=== PATIENT | male | born 1930 | race Caucasian/White ===

== ENCOUNTER 2017-11-11 07:57 | Emergency (ER) | payer MEDICARE ==
[~2017-11-11] VITALS: Ht 188 cm; Wt 122.5 kg
[~2017-11-11 07:57] MED LIST: ALPR0.2565 PO; ASPI-482 PO; BETA1TAB10 PO; CYAN500T17 PO; FELO5TAB PO; GLIP5TAB10; IOHE350I IV; NIAC500T82; OMEG1CAP6 PO; OMEP20CA9 PO; ONDA4TAB12 PO; SIMV80TA7 PO
[2017-11-11 08:38] LABS: BASO # 0.1 x10^3/uL (0.0-0.2); BASO % 1 % (0-3); EOS # 0.2 x10^3/uL (0.0-0.7); EOS % 2 % (0-3); HEMATOCRIT 45.4 % (39.0-53.0); HEMOGLOBIN 15.2 g/dL (13.0-17.5); LYMPH # 2.5 x10^3/uL (1.0-4.8); LYMPH % 31 % (24-48); MEAN CORPUSCULAR HEMOGLOBIN 30 pg (25-35); MEAN CORPUSCULAR HGB CONC 33 g/dL (31-37); MEAN CORPUSCULAR VOLUME 90 fL (79-100); MONO % 12 % (0-9); NEUT # 4.6 x10^3uL (1.8-7.7); NEUT % 55 % (31-73); PLATELET COUNT 231 x10^3/uL (140-400); RED BLOOD COUNT 5.06 x10^6/uL (4.30-5.70); WHITE BLOOD COUNT 8.3 x10^3/uL (4.0-11.0)
[2017-11-11 09:01] LABS: ALBUMIN 3.3 g/dL (3.4-5.0); ALBUMIN/GLOBULIN RATIO 0.9 (1.0-1.7); CALCIUM 8.9 mg/dL (8.5-10.1); CREATININE 2.6 mg/dL (0.7-1.3); GFR 23.6; MAGNESIUM 1.8 mg/dL (1.8-2.4); POTASSIUM 4.5 mmol/L (3.5-5.1); TOTAL BILIRUBIN 0.7 mg/dL (0.2-1.0); TOTAL PROTEIN 6.9 g/dL (6.4-8.2)
--- NOTE | 2017-11-11 09:01 | RAD ---
Portable chest, 11/11/2017: HISTORY: Shortness of breath Comparison is made to a study from 12/10/2011. The heart size and pulmonary vascularity are normal. No pulmonary infiltrate is seen. There is no evidence of pleural fluid. IMPRESSION: No acute cardiopulmonary abnormality is detected. Electronically signed by: Matty Gilliam MD (11/11/2017 8:58 AM) [facility]
[2017-11-11 09:31] LABS: BILIRUBIN,URINE NEG (NEG); CLARITY,URINE CLEAR; COLOR,URINE YELLOW; GLUCOSE,URINE NEG (NEG)
[2017-11-11 09:32] LABS: BACTERIA,URINE 0 /HPF (0-FEW); NITRITE,URINE NEG (NEG); RBC,URINE 0 /HPF (0-2); UROBILINOGEN,URINE 0.2 mg/dL (0.2 mg/dL); WBC,URINE 0 /HPF (0-4)
[2017-11-11] MEDS ORDERED: LORazepam 2 MG/ML VIAL IV ONE (09:45)
--- NOTE | 2017-11-11 10:13 | RAD ---
CT of the head without contrast, 11/11/2017: HISTORY: Weakness There is mild cerebral atrophy. There are mild patchy lucencies in the deep white matter bilaterally suggesting chronic ischemic change. There is no shift of the midline structures. There is no evidence of acute intracranial hemorrhage or mass effect. IMPRESSION: 1. Mild bilateral deep white matter lucencies compatible with chronic ischemic change. 2. No acute intracranial abnormality is detected. RS Compliance Statement: One or more of the following individualized dose reduction techniques were utilized for this examination: 1. Automated exposure control 2. Adjustment of the mA and/or kV according to patient size 3. Use of iterative reconstruction technique Electronically signed by: Matty Gilliam MD (11/11/2017 10:10 AM) [facility]
[2017-11-11 10:40] VITALS: BP 166/69
--- NOTE | 2017-11-11 10:44 | PHYS DOC ---
Past History Past Medical History: Anxiety, Diabetes, GERD Additional Past Medical Histor: elevated harmony Past Surgical History: Cholecystectomy Smoking: Non-smoker Alcohol Use: None Drug Use: None Adult General Chief Complaint Chief Complaint: FATIGUE HPI HPI 87-year-old male patient with multiple medical problem and anxiety complaining of not feeling good for a while that getting worse since 4 AM today. Patient states he cannot explain why he feels that he is not doing right. Patient patient denies chest pain, shortness of breath, focal neuro deficit, fever and chills, cough and congestion, diarrhea and constipation, urinary nausea and vomiting, urinary symptom. Review of Systems Review of Systems Constitutional: Denies fever or chills, reports generalized weakness [] Eyes: Denies change in visual acuity, redness, or eye pain [] HENT: Denies nasal congestion or sore throat [] Respiratory: Denies cough or shortness of breath [] Cardiovascular: No additional information not addressed in HPI [] GI: Denies abdominal pain, nausea, vomiting, bloody stools or diarrhea [] : Denies dysuria or hematuria [] Musculoskeletal: Denies back pain or joint pain [] Integument: Denies rash or skin lesions [] Neurologic: Denies headache, focal weakness or sensory changes [] Endocrine: Denies polyuria or polydipsia [] All other systems were reviewed and found to be within normal limits, except as documented in this note. Current Medications Current Medications Current Medications Medications (Trade) Dose Ordered Sig/Arthur Start Time Stop Time Status Last Admin Dose Admin Lorazepam (Ativan) 0.5 mg 1X ONCE 11/11/17 09:45 11/11/17 09:46 DC Allergies Allergies Allergies Coded Allergies Type Severity Reaction Last Updated Verified morphine Allergy Anxiety 08/04/13 Yes hydromorphone HCl Adverse Reaction Severe severe anxiety 08/04/13 Yes Physical Exam Physical Exam Constitutional: Well developed, well nourished, mild distress, non-toxic appearance. [] HENT: Normocephalic, atraumatic, bilateral external ears normal, oropharynx moist, no oral exudates, nose normal. [] Eyes: PERRLA, EOMI, conjunctiva normal, no discharge. [] Neck: Normal range of motion, no tenderness, supple, no stridor. [] Cardiovascular:Heart rate regular rhythm, no murmur [] Lungs & Thorax: Bilateral breath sounds clear to auscultation [] Abdomen: Bowel sounds normal, soft, no tenderness, no masses, no pulsatile masses. [] Skin: Warm, dry, no erythema, no rash. [] Back: No tenderness, no CVA tenderness. [] Extremities: No tenderness, no cyanosis, no clubbing, ROM intact, no edema. [] Neurologic: Alert and oriented X 3, normal motor function, normal sensory function, no focal deficits noted. [] Psychologic: Affect anxious, judgement normal, mood normal. [] Current Patient Data Lab Results Laboratory Tests Test 11/11/17 08:22 11/11/17 08:27 11/11/17 09:10 11/11/17 09:38 White Blood Count 8.3 x10^3/uL (4.0-11.0) Red Blood Count 5.06 x10^6/uL (4.30-5.70) Hemoglobin 15.2 g/dL (13.0-17.5) Hematocrit 45.4 % (39.0-53.0) Mean Corpuscular Volume 90 fL (79-100) Mean Corpuscular Hemoglobin 30 pg (25-35) Mean Corpuscular Hemoglobin Concent 33 g/dL (31-37) Red Cell Distribution Width 14.0 % (11.5-14.5) Platelet Count 231 x10^3/uL (140-400) Neutrophils (%) (Auto) 55 % (31-73) Lymphocytes (%) (Auto) 31 % (24-48) Monocytes (%) (Auto) 12 % (0-9) H Eosinophils (%) (Auto) 2 % (0-3) Basophils (%) (Auto) 1 % (0-3) Neutrophils # (Auto) 4.6 x10^3uL (1.8-7.7) Lymphocytes # (Auto) 2.5 x10^3/uL (1.0-4.8) Monocytes # (Auto) 1.0 x10^3/uL (0.0-1.1) Eosinophils # (Auto) 0.2 x10^3/uL (0.0-0.7) Basophils # (Auto) 0.1 x10^3/uL (0.0-0.2) Prothrombin Time 12.1 SEC (9.4-11.4) H Prothrombin Time INR 1.2 (0.9-1.1) H Sodium Level 136 mmol/L (136-145) Potassium Level 4.5 mmol/L (3.5-5.1) Chloride Level 104 mmol/L (98-107) Carbon Dioxide Level 29 mmol/L (21-32) Anion Gap 3 (6-14) L Blood Urea Nitrogen 31 mg/dL (8-26) H Creatinine 2.6 mg/dL (0.7-1.3) H Estimated GFR (Cockcroft-Gault) 23.6 BUN/Creatinine Ratio 12 (6-20) Glucose Level 167 mg/dL (70-99) H Lactic Acid Level 1.3 mmol/L (0.4-2.0) Calcium Level 8.9 mg/dL (8.5-10.1) Magnesium Level 1.8 mg/dL (1.8-2.4) Total Bilirubin 0.7 mg/dL (0.2-1.0) Aspartate Amino Transferase (AST) 23 U/L (15-37) Alanine Aminotransferase (ALT) 29 U/L (16-63) Alkaline Phosphatase 138 U/L (46-116) H Creatine Kinase 119 U/L (39-308) Creatine Kinase MB (Mass) 2.7 ng/mL (0.0-3.6) Creatine Kinase MB Relative Index 2.3 % (0-4) Troponin I Quantitative < 0.017 ng/mL (0-0.055) PI-Kxh-W-Type Natriuretic Peptide 245 pg/mL (0-449) Total Protein 6.9 g/dL (6.4-8.2) Albumin 3.3 g/dL (3.4-5.0) L Albumin/Globulin Ratio 0.9 (1.0-1.7) L Glucose (Fingerstick) 168 mg/dL (70-99) H 143 mg/dL (70-99) H Urine Collection Type Unknown Urine Color Yellow Urine Clarity Clear Urine pH 5.5 Urine Specific [place] 1.010 Urine Protein Trace (NEG-TRACE) Urine Glucose (UA) Neg mg/dL (NEG) Urine Ketones (Stick) Neg mg/dL (NEG) Urine Blood Neg (NEG) Urine Nitrite Neg (NEG) Urine Bilirubin Neg (NEG) Urine Urobilinogen Dipstick 0.2 mg/dL (0.2 mg/dL) Urine Leukocyte Esterase Neg (NEG) Urine RBC 0 /HPF (0-2) Urine WBC 0 /HPF (0-4) Urine Squamous Epithelial Cells None /LPF Urine Bacteria 0 /HPF (0-FEW) EKG EKG EKG interpreted by me. EKG at 0 816 showed normal sinus rhythm at rate of 68, leftward axis, no acute ST and T-wave abnormalities Radiology/Procedures Radiology/Procedures [][address] [address] IMAGING REPORT Signed PATIENT: SANGEETHA RODRÍGUEZ ACCOUNT: [id number] : 1930 LOCATION: ER AGE: 87 SEX: M EXAM STATUS: REG ER ORD. PHYSICIAN: BUCK ZAVALETA MD REASON: weakness PROCEDURE: CT HEAD WO CONTRAST CT of the head without contrast, 11/11/2017: HISTORY: Weakness There is mild cerebral atrophy. There are mild patchy lucencies in the deep white matter bilaterally suggesting chronic ischemic change. There is no shift of the midline structures. There is no evidence of acute intracranial hemorrhage or mass effect. IMPRESSION: 1. Mild bilateral deep white matter lucencies compatible with chronic ischemic change. 2. No acute intracranial abnormality is detected. PQRS Compliance Statement: One or more of the following individualized dose reduction techniques were utilized for this examination: 1. Automated exposure control 2. Adjustment of the mA and/or kV according to patient size 3. Use of iterative reconstruction technique Electronically signed by: Matty Gilliam MD (11/11/2017 10:10 AM) [facility] DICTATED AND SIGNED BY: MATTY GILLIAM [address] [address] IMAGING REPORT Signed PATIENT: SANGEETHA RODRÍGUEZ ACCOUNT: [id number] : 1930 LOCATION: ER AGE: 87 SEX: M EXAM STATUS: REG ER ORD. PHYSICIAN: BUCK ZAVALETA MD REASON: weakness PROCEDURE: PORTABLE CHEST 1V Portable chest, 11/11/2017: HISTORY: Shortness of breath Comparison is made to a study from 12/10/2011. The heart size and pulmonary vascularity are normal. No pulmonary infiltrate is seen. There is no evidence of pleural fluid. IMPRESSION: No acute cardiopulmonary abnormality is detected. Electronically signed by: Matty Gilliam MD (11/11/2017 8:58 AM) [facility] DICTATED AND SIGNED BY: MATTY GILLIAM MD DATE: 11/11/17 0857 CC: BUCK ZAVALETA MD; ALAN ARTEAGA MD ~ Course & Med Decision Making Course & Med Decision Making Pertinent Labs and Imaging studies reviewed. (See chart for details) Evaluation of patient in ER showed 87-year-old male patient with complaining of not feeling good since this morning patient had unremarkable physical exam and neuro exam. EKG and labs was unremarkable except for chronic renal insufficiency. Patient had blood sugar of 160s patient had episodes of anxiety and treated with Ativan and felt better. Patient currently taking Xanax. Patient ambulated without problem and feels comfortable to go home. Patient's affect is follow up with his primary care physician as needed. [] Dragon Disclaimer Dragon Disclaimer This electronic medical record was generated, in whole or in part, using a voice recognition dictation system. Departure Departure: Impression: Primary Impression: Anxiety Additional Impressions: Generalized weakness Chronic renal insufficiency Uncontrolled diabetes mellitus Disposition: 01 HOME, SELF-CARE (At 1044) Condition: IMPROVED Referrals: ALAN ARTEAGA MD (PCP) Patient Instructions: Anxiety and Panic Attacks Additional Instructions: Drink plenty of liquids Follow-up with your primary care physician in 3-5 days Return to ER if not getting better Problem Qualifiers BUCK ZAVALETA MD Nov 11, 2017 10:44
--- NOTE | 2017-11-11 11:48 | EKG ---
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
[2017-11-12] MEDS ORDERED: ESCITALOPRAM OXA5 MG PO (05:23)
[2017-11-12] MEDS ORDERED: [UNRECOGNIZED DRUG - OTHER] PO (05:23)
[2017-11-12] MEDS ORDERED: GLUCOS PO (05:23)
[2017-11-12] MEDS ORDERED: AMLO5TAB2 PO (05:23)
[2017-11-12] MEDS ORDERED: CETI10TA16 PO (05:23)
[2017-11-12] MEDS ORDERED: LISI10TA2 PO (05:27)
[2017-11-12] MEDS ORDERED: MULT1TAB52 PO (05:27)
[2017-11-12] MEDS ORDERED: METF500T5 PO (05:28)
[2017-11-12] MEDS ORDERED: POLY17PO5 PO (05:28)
[2017-11-12] MEDS ORDERED: losartin (05:28)
== END 2017-11-11 11:15 | disposition home or self-care (01) ==
LOC: ER 07:57
DX: F41.9 Anxiety disorder, unspecified (principal); R53.1 Weakness; E11.22 Type 2 diabetes mellitus with diabetic chronic kidney disease; N18.9 Chronic kidney disease, unspecified; K21.9 Gastro-esophageal reflux disease without esophagitis; Z88.5 Allergy status to narcotic agent
CPT/HCPCS: 36415; 70450; 71045; 80053; 81001; 82553; 82947; 83605; 83735; 83880; 84484; 85025; 85610; 93005; 99285-25

== ENCOUNTER 2017-11-12 04:45 | Emergency (ER) | payer MEDICARE ==
[~2017-11-12] VITALS: Ht 188 cm; Wt 122.5 kg
[2017-11-12 05:20] VITALS: BP 177/61
[2017-11-12] MEDS ORDERED: AMLO5TAB2 PO (05:23)
[2017-11-12] MEDS ORDERED: GLUCOS PO (05:23)
[2017-11-12] MEDS ORDERED: ESCITALOPRAM OXA5 MG PO (05:23)
[2017-11-12] MEDS ORDERED: [UNRECOGNIZED DRUG - OTHER] PO (05:23)
[2017-11-12] MEDS ORDERED: CETI10TA16 PO (05:23)
--- NOTE | 2017-11-12 05:24 | PHYS DOC ---
Past History Past Medical History: Anxiety, Constipation, Diabetes, GERD, Hypertension Additional Past Medical Histor: elevated harmony Past Surgical History: Cholecystectomy Smoking: Non-smoker Alcohol Use: None Drug Use: None Adult General Chief Complaint Chief Complaint: ANXIETY/PANIC ATTACK HPI HPI 87-year-old male presents via EMS with panic attack. He has a history of anxiety and used to take ask citalopram 5 mg daily. The medication was labeled for mood and the patient understands and lives taking it so he stopped taking it about a week ago. He was seen in this ED yesterday for similar complaint. He was treated and went home. Around midnight tonight, the patient woke up with the restroom and just felt overlying anxiety. He couldn't sit down or lay down or stop pacing around the house. He tried to take a half of a Xanax but this did not help. Since he could not get settled, he called EMS. At this time, he has no complaints. Review of Systems Review of Systems Constitutional: Denies fever or chills [] Eyes: Denies change in visual acuity, redness, or eye pain [] HENT: Denies nasal congestion or sore throat [] Respiratory: Denies cough or shortness of breath [] Cardiovascular: No additional information not addressed in HPI [] GI: Denies abdominal pain, nausea, vomiting, bloody stools or diarrhea [] : Denies dysuria or hematuria [] Musculoskeletal: Denies back pain or joint pain [] Integument: Denies rash or skin lesions [] Neurologic: Denies headache, focal weakness or sensory changes [] Endocrine: Denies polyuria or polydipsia [] All other systems were reviewed and found to be within normal limits, except as documented in this note. Allergies Allergies Allergies Coded Allergies Type Severity Reaction Last Updated Verified morphine Allergy Unknown Anxiety 11/12/17 Yes hydromorphone HCl Adverse Reaction Severe severe anxiety 11/12/17 Yes Physical Exam Physical Exam Constitutional: Well developed, well nourished, no acute distress, non-toxic appearance. [] HENT: Normocephalic, atraumatic, bilateral external ears normal, oropharynx moist, no oral exudates, nose normal. [] Eyes: PERRLA, EOMI, conjunctiva normal, no discharge. [] Neck: Normal range of motion, no tenderness, supple, no stridor. [] Cardiovascular:Heart rate regular rhythm, no murmur [] Lungs & Thorax: Bilateral breath sounds clear to auscultation [] Abdomen: Bowel sounds normal, soft, no tenderness, no masses, no pulsatile masses. [] Skin: Warm, dry, no erythema, no rash. [] Back: No tenderness, no CVA tenderness. [] Extremities: No tenderness, no cyanosis, no clubbing, ROM intact, no edema. [] Neurologic: Alert and oriented X 3, normal motor function, normal sensory function, no focal deficits noted. [] Psychologic: Affect normal, judgement normal, mood normal. Anxiety appears to be controlled.[] Current Patient Data Vital Signs Vital Signs Date Time Temp Pulse Resp B/P (MAP) Pulse Ox O2 Delivery O2 Flow Rate FiO2 11/12/17 04:55 98.4 65 20 95 Room Air EKG EKG [] Radiology/Procedures Radiology/Procedures [] Course & Med Decision Making Course & Med Decision Making Pertinent Labs and Imaging studies reviewed. (See chart for details) The time the patient got emergency room, his panic attack hasn't subsided. During my interview, he stated that he feels normal at this time. His also states that he is back to himself. The patient quit taking the medication because he did not understand what was for. I had a long discussion with him about the purpose of his preventative anxiety medication is citalopram as well as the use of Xanax for acute attacks. Now that he understands better, he states that he will resume taking his escitalopram. Given that the patient had an extensive workup by my colleague yesterday, I did not feel that a repeat evaluation as necessary. I gave the patient the option of repeating a workup and he would prefer not to as well. Since he is feeling back to baseline, he would like to go home. He is stable for discharge at this time. [] Dragon Disclaimer Dragon Disclaimer This electronic medical record was generated, in whole or in part, using a voice recognition dictation system. Departure Departure: Referrals: ALAN ARTEAGA MD (PCP) TAWNYA PEDROZA DO Nov 12, 2017 05:24
[2017-11-12] MEDS ORDERED: LISI10TA2 PO (05:27)
[2017-11-12] MEDS ORDERED: MULT1TAB52 PO (05:27)
[2017-11-12] MEDS ORDERED: POLY17PO5 PO (05:28)
[2017-11-12] MEDS ORDERED: losartin (05:28)
[2017-11-12] MEDS ORDERED: METF500T5 PO (05:28)
== END 2017-11-12 05:32 | disposition home or self-care (01) ==
LOC: ER 04:45
DX: F41.0 Panic disorder [episodic paroxysmal anxiety] (principal); E11.9 Type 2 diabetes mellitus without complications; K21.9 Gastro-esophageal reflux disease without esophagitis; I10 Essential (primary) hypertension; Z88.5 Allergy status to narcotic agent
CPT/HCPCS: 99284

== ENCOUNTER 2018-02-13 17:38 | Emergency (ER) | payer MEDICARE ==
[~2018-02-13] VITALS: Ht 188 cm; Wt 134.7 kg
[~2018-02-13 17:38] MED LIST changes: +ACET325T9 PO; +AMLO5TAB7 PO; +CETI10TA16 PO; +CITA10TA4 PO; +DIVA125C2 PO; +ESCITALOPRAM OXA5 MG PO; +FLUV50TA2 PO; -GLIP5TAB10; +GLIP5TAB10 PO; +GLUC1CAP18 PO; +GLUCOS PO; +LISI10TA2 PO; +METF500T16 PO; +MULT1TAB52 PO; +POLY17PO5 PO; +TRAZ-86 PO; +[UNRECOGNIZED DRUG - OTHER] PO; +losartin
[2018-02-13 17:49] VITALS: BP 176/71
--- NOTE | 2018-02-13 17:52 | ED.ADGEN ---
Past History Past Medical History: Anxiety, Constipation, Diabetes, GERD, Hypertension, Renal Disease, Other Additional Past Medical Histor: elevated harmony Past Surgical History: Cholecystectomy Smoking: Non-smoker Alcohol Use: None Drug Use: None Adult General Chief Complaint Chief Complaint ".. I ve been having increase insomnia... and anxiety... it has been mainly in the afternoon... when I start getting anxious.. and the sleeping problems has been constant the last couple weeks.. I was admitted here once.... for anxiety.. I usually go to [facility] sometimes... " HPI HPI Patient is a 88 year old male who presents with above hx and complaints of insomnia and anxiety. Pt has medical hx of anxiety, insomnia, DM, GERD, HTN, CHf , and Renal Insuf. Pt. patient normally follows at [facility]. I'll follow up with primary care. Patient has been taking majority his psych meds as directed. However it has not taken his trazodone 100 mg at night for sleep. Patient has not been taking his Alprazolam for anxiety because it makes him sedate during the day. Patient has follow-up with psychiatrist on the , Review of Systems Review of Systems Only complaints or anxiety and insomnia currently Constitutional: Denies fever or chills [] Eyes: Denies change in visual acuity, redness, or eye pain [] HENT: Denies nasal congestion or sore throat [] Respiratory: Denies cough or shortness of breath [] Cardiovascular: No additional information not addressed in HPI [] GI: Denies abdominal pain, nausea, vomiting, bloody stools or diarrhea [] : Denies dysuria or hematuria [] Musculoskeletal: Denies back pain or joint pain [] Integument: Denies rash or skin lesions [] Neurologic: Denies headache, focal weakness or sensory changes [] Endocrine: Denies polyuria or polydipsia [] All other systems were reviewed and found to be within normal limits, except as documented in this note. Family History Family History Noncontributory Current Medications Current Medications See nursing notes for home meds Allergies Allergies Allergies Coded Allergies Type Severity Reaction Last Updated Verified morphine Allergy Intermediate Anxiety 01/17/18 Yes hydromorphone HCl Adverse Reaction Severe severe anxiety 11/12/17 Yes Physical Exam Physical Exam Constitutional: , no acute distress, non-toxic appearance. [] HENT: Normocephalic, atraumatic, bilateral external ears normal, oropharynx moist, no oral exudates, nose normal. [] Eyes: PERRLA, EOMI, conjunctiva normal, no discharge. [] Neck: Normal range of motion, no tenderness, supple, no stridor. [] Cardiovascular:Heart rate regular rhythm, no murmur []PMI to the left. Lungs & Thorax: Bilateral breath sounds clear to auscultation [] Abdomen: Bowel sounds normal, soft, no tenderness, no masses, no pulsatile masses. [] Skin: Warm, dry, no erythema, no rash. [] Back: No tenderness, no CVA tenderness. [] Extremities: No tenderness, no cyanosis, no clubbing, ROM intact, no edema. [] Neurologic: Alert and oriented X 3, normal motor function, normal sensory function, no focal deficits noted. [] Psychologic: Affect anxious, judgement appears to have good insight currently, mood depressed Current Patient Data Vital Signs Vital Signs Date Time Temp Pulse Resp B/P (MAP) Pulse Ox O2 Delivery O2 Flow Rate FiO2 02/13/18 17:49 97.7 74 16 95 Room Air Lab Results Laboratory Tests Test 02/13/18 18:12 02/13/18 18:18 Urine Collection Type Unknown Urine Color Straw Urine Clarity Clear Urine pH 5.0 Urine Specific [place] <=1.005 Urine Protein Neg (NEG-TRACE) Urine Glucose (UA) Neg mg/dL (NEG) Urine Ketones (Stick) Neg mg/dL (NEG) Urine Blood Neg (NEG) Urine Nitrite Neg (NEG) Urine Bilirubin Neg (NEG) Urine Urobilinogen Dipstick 0.2 mg/dL (0.2 mg/dL) Urine Leukocyte Esterase Neg (NEG) Urine RBC 0 /HPF (0-2) Urine WBC 0 /HPF (0-4) Urine Squamous Epithelial Cells None /LPF Urine Bacteria 0 /HPF (0-FEW) Urine Opiates Screen Neg (NEG) Urine Methadone Screen Neg (NEG) Urine Barbiturates Neg (NEG) Urine Phencyclidine Screen Neg (NEG) Urine Amphetamine/Methamphetamine Neg (NEG) Urine Benzodiazepines Screen Neg (NEG) Urine Cocaine Screen Neg (NEG) Urine Cannabinoids Screen Neg (NEG) Urine Ethyl Alcohol Neg (NEG) White Blood Count 7.5 x10^3/uL (4.0-11.0) Red Blood Count 4.63 x10^6/uL (4.30-5.70) Hemoglobin 14.1 g/dL (13.0-17.5) Hematocrit 42.1 % (39.0-53.0) Mean Corpuscular Volume 91 fL (79-100) Mean Corpuscular Hemoglobin 30 pg (25-35) Mean Corpuscular Hemoglobin Concent 33 g/dL (31-37) Red Cell Distribution Width 14.0 % (11.5-14.5) Platelet Count 259 x10^3/uL (140-400) Neutrophils (%) (Auto) 67 % (31-73) Lymphocytes (%) (Auto) 21 % (24-48) L Monocytes (%) (Auto) 10 % (0-9) H Eosinophils (%) (Auto) 2 % (0-3) Basophils (%) (Auto) 1 % (0-3) Neutrophils # (Auto) 5.0 x10^3uL (1.8-7.7) Lymphocytes # (Auto) 1.6 x10^3/uL (1.0-4.8) Monocytes # (Auto) 0.7 x10^3/uL (0.0-1.1) Eosinophils # (Auto) 0.1 x10^3/uL (0.0-0.7) Basophils # (Auto) 0.0 x10^3/uL (0.0-0.2) Erythrocyte Sedimentation Rate 14 (0-15) Prothrombin Time 11.9 SEC (9.4-11.4) H Prothrombin Time INR 1.2 (0.9-1.1) H PTT 24 SEC (23-33) Sodium Level 138 mmol/L (136-145) Potassium Level 4.5 mmol/L (3.5-5.1) Chloride Level 104 mmol/L (98-107) Carbon Dioxide Level 28 mmol/L (21-32) Anion Gap 6 (6-14) Blood Urea Nitrogen 33 mg/dL (8-26) H Creatinine 2.3 mg/dL (0.7-1.3) H Estimated GFR (Cockcroft-Gault) 27.1 Glucose Level 212 mg/dL (70-99) H Calcium Level 8.9 mg/dL (8.5-10.1) Magnesium Level 1.8 mg/dL (1.8-2.4) Total Bilirubin 0.5 mg/dL (0.2-1.0) Direct Bilirubin 0.1 mg/dL (0.0-0.2) Aspartate Amino Transferase (AST) 22 U/L (15-37) Alanine Aminotransferase (ALT) 30 U/L (16-63) Alkaline Phosphatase 132 U/L (46-116) H Creatine Kinase 135 U/L (39-308) Troponin I Quantitative < 0.017 ng/mL (0-0.055) OD-Ngl-K-Type Natriuretic Peptide 529 pg/mL (0-449) H Total Protein 6.4 g/dL (6.4-8.2) Albumin 3.3 g/dL (3.4-5.0) L Lipase 133 U/L (73-393) EKG EKG My interpretation of EKG shows a sinus rhythm at 70 bpm. Does have some left axis deviation. A fascicular block. No obvious acute STEMI findings with contralateral changes.[] Radiology/Procedures Radiology/Procedures My interpretation of chest x-ray shows cardiomegaly. No acute interval changes. Degenerative joint changes.[] Course & Med Decision Making Course & Med Decision Making Pertinent Labs and Imaging studies reviewed. (See chart for details) Discussed plan for patient will take trazodone 100 mg one hour before bedtime. If needed and increase dose by 50 mg. Since anxiety occurs in the afternoon take the above Aprazolam 0.25 in the afternoon. He is to keep follow-up with primary and psychology. Return if any concerns. [] Final Impression Final Impression 1. Anxiety disorder 2. Insomnia onset and early awakening 3. Hypertension history 4. Renal insufficiency- BUN 33 creatinine 2.3 5. Diabetes [] Dragon Disclaimer Dragon Disclaimer This electronic medical record was generated, in whole or in part, using a voice recognition dictation system. KEYA REILLY MD Feb 13, 2018 17:52
--- NOTE | 2018-02-13 18:08 | EKG ---
[address] [address] Test Date: 2018-02-13 Test Time: 18:00:37 Pat Name: SANGEETHA RODRÍGUEZ Department: Room: Gender: M Clinical Radiologist: : 1930 Requested By: KEYA REILLY Order Number: [id number] Reading MD: Jacky Conteh MD Measurements Intervals [place] Rate: 70 P: -2 MS: 188 QRS: -32 QRSD: 106 T: 7 QT: 400 QTc: 435 Interpretive Statements SINUS RHYTHM ABNORMAL LEFT AXIS DEVIATION LEFT ANTERIOR FASCICULAR BLOCK LEFT VENTRICULAR HYPERTROPHY ABNORMAL ECG Electronically Signed On 02-14-2018 10:09:20 CDT by Jacky Conteh MD
[2018-02-13 18:35] LABS: BASO % 1 % (0-3); EOS # 0.1 x10^3/uL (0.0-0.7); EOS % 2 % (0-3); HEMATOCRIT 42.1 % (39.0-53.0); HEMOGLOBIN 14.1 g/dL (13.0-17.5); LYMPH # 1.6 x10^3/uL (1.0-4.8); LYMPH % 21 % (24-48); MEAN CORPUSCULAR HEMOGLOBIN 30 pg (25-35); MEAN CORPUSCULAR HGB CONC 33 g/dL (31-37); MEAN CORPUSCULAR VOLUME 91 fL (79-100); MONO # 0.7 x10^3/uL (0.0-1.1); MONO % 10 % (0-9); NEUT % 67 % (31-73); PLATELET COUNT 259 x10^3/uL (140-400); RED BLOOD COUNT 4.63 x10^6/uL (4.30-5.70); WHITE BLOOD COUNT 7.5 x10^3/uL (4.0-11.0)
[2018-02-13 18:42] LABS: BARBITURATES NEG (NEG); COCAINE NEG (NEG); METHADONE NEG (NEG); OPIATES NEG (NEG)
[2018-02-13 18:45] LABS: BACTERIA,URINE 0 /HPF (0-FEW); BILIRUBIN,URINE NEG (NEG); CLARITY,URINE CLEAR; COLOR,URINE STRAW; GLUCOSE,URINE NEG (NEG); NITRITE,URINE NEG (NEG); RBC,URINE 0 /HPF (0-2); UROBILINOGEN,URINE 0.2 mg/dL (0.2 mg/dL); WBC,URINE 0 /HPF (0-4)
[2018-02-13 19:00] LABS: ALBUMIN 3.3 g/dL (3.4-5.0); CALCIUM 8.9 mg/dL (8.5-10.1); CREATININE 2.3 mg/dL (0.7-1.3); DIRECT BILIRUBIN 0.1 mg/dL (0.0-0.2); GFR 27.1; MAGNESIUM 1.8 mg/dL (1.8-2.4); POTASSIUM 4.5 mmol/L (3.5-5.1); TOTAL BILIRUBIN 0.5 mg/dL (0.2-1.0); TOTAL PROTEIN 6.4 g/dL (6.4-8.2)
[2018-02-13 19:11] LABS: AMPHETAMINE/METHAMPHETAMINE NEG (NEG); BENZODIAZEPINES NEG (NEG); CANNABINOIDS NEG (NEG); PHENCYCLIDINE NEG (NEG)
[2018-02-13 19:58] LABS: SEDIMENTATION RATE 14 (0-15)
--- NOTE | 2018-02-13 20:42 | RAD ---
AP portable chest radiograph 02/13/2018 Clinical History: Chest pain. An AP erect portable digital radiograph of the chest was obtained. Comparison study is dated 11/11/2017. The cardiac silhouette is mildly enlarged. The thoracic aorta is mildly tortuous. No acute pulmonary infiltrate is seen. No pleural effusion or pneumothorax is noted. The osseous structures are unchanged. Impression: No acute abnormality is seen. Electronically signed by: Graham Anaya MD (02/13/2018 8:38 PM) [facility]
== END 2018-02-13 20:51 | disposition home or self-care (01) ==
LOC: ER 17:38
DX: F41.9 Anxiety disorder, unspecified (principal); G47.00 Insomnia, unspecified; K21.9 Gastro-esophageal reflux disease without esophagitis; E11.9 Type 2 diabetes mellitus without complications; I11.0 Hypertensive heart disease with heart failure; I50.9 Heart failure, unspecified; N28.9 Disorder of kidney and ureter, unspecified; Z88.5 Allergy status to narcotic agent
CPT/HCPCS: 36415; 71045; 80048; 80076; 80307; 81001; 82550; 83690; 83735; 83880; 84443; 84484; 85025; 85610; 85651; 85730; 93005; 99285-25; G0479

== ENCOUNTER 2018-02-21 14:08 | Emergency (ER) | payer MEDICARE ==
[~2018-02-21] VITALS: Ht 188 cm; Wt 121.6 kg
--- NOTE | 2018-02-21 14:49 | EKG ---
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
[2018-02-21 15:00] VITALS: BP 177/66
[2018-02-21 15:33] LABS: HEMOGLOBIN 13.9 g/dL (13.0-17.5); RED BLOOD COUNT 4.55 x10^6/uL (4.30-5.70); RED CELL DISTRIBUTION WIDTH 13.9 % (11.5-14.5); WHITE BLOOD COUNT 7.1 x10^3/uL (4.0-11.0)
[2018-02-21 15:47] LABS: ALBUMIN 3.1 g/dL (3.4-5.0); CALCIUM 8.5 mg/dL (8.5-10.1); CREATININE 2.2 mg/dL (0.7-1.3); GFR 28.5; POTASSIUM 4.1 mmol/L (3.5-5.1); TOTAL BILIRUBIN 0.5 mg/dL (0.2-1.0); TOTAL PROTEIN 6.3 g/dL (6.4-8.2)
[2018-02-21 15:58] LABS: BILIRUBIN,URINE NEG (NEG); CLARITY,URINE CLEAR; COLOR,URINE YELLOW; GLUCOSE,URINE NEG (NEG)
[2018-02-21 15:59] LABS: BACTERIA,URINE 0 /HPF (0-FEW); HYALINE CASTS, URINE OCC /HPF; NITRITE,URINE NEG (NEG); RBC,URINE RARE /HPF (0-2); SQUAMOUS EPITHELIAL CELL,UR OCC /LPF; UROBILINOGEN,URINE 0.2 mg/dL (0.2 mg/dL); WBC,URINE RARE /HPF (0-4)
--- NOTE | 2018-02-21 16:07 | PHYS DOC ---
Past History Past Medical History: Anxiety, Constipation, Diabetes, GERD, Hypertension, Renal Disease, Other Additional Past Medical Histor: elevated harmony Past Surgical History: Cholecystectomy Smoking: Non-smoker Alcohol Use: None Drug Use: None Adult General Chief Complaint Chief Complaint: nausea and unable to sleep [facility] HPI Patient is a 88 year old male who presents with complaining of chronic nausea that getting worse for several months without having vomiting or abdominal pain. Patient also complaining of insomnia for a long time. Patient states he cannot have a good sleep and usually waking up with nightmares. Patient had multiple emergency room visits and hospitalization in [facility] recently. Patient has appointment with a new primary care physician in 2 days and doesn't want to go to the [facility] as his usual care provider. Patient denies suicidal and homicidal ideation and hallucination, pain, focal neuro deficit, chest pain, shortness of breath. Review of Systems Review of Systems Constitutional: Denies fever or chills [] Eyes: Denies change in visual acuity, redness, or eye pain [] HENT: Denies nasal congestion or sore throat [] Respiratory: Denies cough or shortness of breath [] Cardiovascular: No additional information not addressed in HPI [] GI: Denies abdominal pain, vomiting, bloody stools or diarrhea , reports nausea[ ] : Denies dysuria or hematuria [] Musculoskeletal: Denies back pain or joint pain [] Integument: Denies rash or skin lesions [] Neurologic: Denies headache, focal weakness or sensory changes [] Endocrine: Denies polyuria or polydipsia [] All other systems were reviewed and found to be within normal limits, except as documented in this note. Allergies Allergies Allergies Coded Allergies Type Severity Reaction Last Updated Verified morphine Allergy Intermediate Anxiety 01/17/18 Yes hydromorphone HCl Adverse Reaction Severe severe anxiety 11/12/17 Yes Physical Exam Physical Exam Constitutional: Well developed, well nourished, no acute distress, non-toxic appearance. [] HENT: Normocephalic, atraumatic, bilateral external ears normal, oropharynx moist, no oral exudates, nose normal. [] Eyes: PERRLA, EOMI, conjunctiva normal, no discharge. [] Neck: Normal range of motion, no tenderness, supple, no stridor. [] Cardiovascular:Heart rate regular rhythm, no murmur [] Lungs & Thorax: Bilateral breath sounds clear to auscultation [] Abdomen: Bowel sounds normal, soft, no tenderness, no masses, no pulsatile masses. [] Skin: Warm, dry, no erythema, no rash. [] Back: No tenderness, no CVA tenderness. [] Extremities: No tenderness, no cyanosis, no clubbing, ROM intact, no edema. [] Neurologic: Alert and oriented X 3, normal motor function, normal sensory function, no focal deficits noted. [] Psychologic: Affect anxious, judgement normal, mood normal. [] Current Patient Data Vital Signs Vital Signs Date Time Temp Pulse Resp B/P (MAP) Pulse Ox O2 Delivery O2 Flow Rate FiO2 02/21/18 14:08 98.4 71 18 95 Room Air Lab Results Laboratory Tests Test 02/21/18 15:14 02/21/18 15:30 White Blood Count 7.1 x10^3/uL (4.0-11.0) Red Blood Count 4.55 x10^6/uL (4.30-5.70) Hemoglobin 13.9 g/dL (13.0-17.5) Hematocrit 41.0 % (39.0-53.0) Mean Corpuscular Volume 90 fL (79-100) Mean Corpuscular Hemoglobin 31 pg (25-35) Mean Corpuscular Hemoglobin Concent 34 g/dL (31-37) Red Cell Distribution Width 13.9 % (11.5-14.5) Platelet Count 231 x10^3/uL (140-400) Sodium Level 139 mmol/L (136-145) Potassium Level 4.1 mmol/L (3.5-5.1) Chloride Level 104 mmol/L (98-107) Carbon Dioxide Level 28 mmol/L (21-32) Anion Gap 7 (6-14) Blood Urea Nitrogen 30 mg/dL (8-26) H Creatinine 2.2 mg/dL (0.7-1.3) H Estimated GFR (Cockcroft-Gault) 28.5 BUN/Creatinine Ratio 14 (6-20) Glucose Level 200 mg/dL (70-99) H Calcium Level 8.5 mg/dL (8.5-10.1) Total Bilirubin 0.5 mg/dL (0.2-1.0) Aspartate Amino Transferase (AST) 26 U/L (15-37) Alanine Aminotransferase (ALT) 36 U/L (16-63) Alkaline Phosphatase 120 U/L (46-116) H Troponin I Quantitative < 0.017 ng/mL (0-0.055) Total Protein 6.3 g/dL (6.4-8.2) L Albumin 3.1 g/dL (3.4-5.0) L Albumin/Globulin Ratio 1.0 (1.0-1.7) Lipase 120 U/L (73-393) Urine Collection Type Unknown Urine Color Yellow Urine Clarity Clear Urine pH 5.5 Urine Specific [place] 1.015 Urine Protein 100 mg/dl (NEG-TRACE) Urine Glucose (UA) Neg mg/dL (NEG) Urine Ketones (Stick) Neg mg/dL (NEG) Urine Blood Neg (NEG) Urine Nitrite Neg (NEG) Urine Bilirubin Neg (NEG) Urine Urobilinogen Dipstick 0.2 mg/dL (0.2 mg/dL) Urine Leukocyte Esterase Neg (NEG) Urine RBC Rare /HPF (0-2) Urine WBC Rare /HPF (0-4) Urine Squamous Epithelial Cells Occ /LPF Urine Bacteria 0 /HPF (0-FEW) Urine Hyaline Casts Occ /HPF EKG EKG EKG interpreted by me. EKG at 1447 showed normal sinus rhythm at 67, abnormal left axis deviation, left anterior fascicular block, left ventricular hypertrophy, poor R-wave progress in anteroseptal leads, no acute ST and T wave abnormality Radiology/Procedures Radiology/Procedures [] Course & Med Decision Making Course & Med Decision Making Pertinent Labs reviewed. (See chart for details) Evaluation of patient in ER showed 88-year-old male patient with complaining of chronic nausea and insomnia. Patient had unremarkable physical exam and EKG and labs except for chronic renal insufficiency and uncontrolled diabetes mellitus. Patient felt better with nausea without taking any medication in ER. Patient had an appointment with a new primary care physician and wants to follow with his physician. Dragon Disclaimer Dragon Disclaimer This electronic medical record was generated, in whole or in part, using a voice recognition dictation system. Departure Departure: Impression: Primary Impression: Chronic nausea Additional Impressions: Insomnia Chronic renal insufficiency Uncontrolled diabetes mellitus Disposition: HOME, SELF-CARE (1606) Condition: STABLE Referrals: ALAN ARTEAGA MD (PCP) Patient Instructions: Insomnia, Nausea, Adult Additional Instructions: Follow-up with your primary care physician in 2 days as a scheduled Return to ER if not getting better Problem Qualifiers BUCK ZAVALETA MD Feb 21, 2018 16:07
== END 2018-02-21 16:10 | disposition home or self-care (01) ==
LOC: ER 14:08
DX: R11.0 Nausea (principal); G47.00 Insomnia, unspecified; F41.9 Anxiety disorder, unspecified; E11.65 Type 2 diabetes mellitus with hyperglycemia; K21.9 Gastro-esophageal reflux disease without esophagitis; E11.22 Type 2 diabetes mellitus with diabetic chronic kidney disease; I12.9 Hypertensive chronic kidney disease with stage 1 through stage 4 chronic kidney disease, or unspecified chronic kidney disease; N18.9 Chronic kidney disease, unspecified; Z88.5 Allergy status to narcotic agent
CPT/HCPCS: 36415; 80053; 81001; 83690; 84484; 85027; 93005; 99285-25

== ENCOUNTER 2018-03-15 08:12 | Emergency (ER) | payer MEDICARE ==
[2018-03-15 09:16] LABS: BASO % 1 % (0-3); EOS # 0.1 x10^3/uL (0.0-0.7); EOS % 1 % (0-3); HEMATOCRIT 42.7 % (39.0-53.0); HEMOGLOBIN 14.5 g/dL (13.0-17.5); LYMPH # 1.6 x10^3/uL (1.0-4.8); LYMPH % 25 % (24-48); MEAN CORPUSCULAR HEMOGLOBIN 31 pg (25-35); MEAN CORPUSCULAR HGB CONC 34 g/dL (31-37); MEAN CORPUSCULAR VOLUME 90 fL (79-100); MONO # 0.8 x10^3/uL (0.0-1.1); MONO % 12 % (0-9); NEUT # 3.8 x10^3uL (1.8-7.7); NEUT % 61 % (31-73); PLATELET COUNT 228 x10^3/uL (140-400); RED BLOOD COUNT 4.76 x10^6/uL (4.30-5.70); RED CELL DISTRIBUTION WIDTH 13.8 % (11.5-14.5); WHITE BLOOD COUNT 6.2 x10^3/uL (4.0-11.0)
[2018-03-15 09:30] LABS: ALBUMIN 3.5 g/dL (3.4-5.0); CALCIUM 8.6 mg/dL (8.5-10.1); CREATININE 2.1 mg/dL (0.7-1.3); GFR 30.1; POTASSIUM 3.7 mmol/L (3.5-5.1); TOTAL BILIRUBIN 1.1 mg/dL (0.2-1.0); TOTAL PROTEIN 6.9 g/dL (6.4-8.2)
--- NOTE | 2018-03-15 10:07 | RAD ---
CT ABDOMEN PELVIS WO CONTRAST Indication: ABDOMINAL AND EPIGASTRIC PAIN. NAUSEA. GB REMOVED Exposure: One or more of the following individualized dose reduction techniques were utilized for this examination: 1. Automated exposure control 2. Adjustment of the mA and/or kV according to patient size 3. Use of iterative reconstruction technique. Comparison: None are available. Contrast: No intravenous contrast given. No oral contrast per request. Evaluation of solid viscera, bowel and vasculature is compromised by the noncontrast technique. Lower thorax: Mildly increased interstitial markings of both lung bases. No consolidating infiltrate. Findings probably due to chronic fibrosis. Coronary artery calcification. Liver: Unremarkable Spleen: Unremarkable. Multiple small accessory splenule's. Pancreas: Unremarkable Adrenals: No evidence of mass. Kidneys: Hypodense lesion upper pole right kidney measures 4.6 cm and fluid density, most compatible with a cyst. Tiny hypodense lesion lower pole left kidney too small to characterize but would also commonly represent a cyst. Mild stranding in the perinephric fat. Urinary tracts: No urolithiasis or hydronephrosis. Gallbladder: No calcified stone Aorta: Atheromatous calcifications, no evidence of aneurysm. Lymph nodes: No significant enlargement GI tract: Colonic diverticulosis. No evidence of acute colitis. No evidence of bowel obstruction. Appendix is normal. Reproductive organs: Prostate gland mildly enlarged, 5.7 cm. Urinary bladder: Mild wall thickening. The inferior urinary bladder wall is slightly more thickened and is difficult to distinguish from the prostate gland. Peritoneum: No evidence of pneumoperitoneum. No free fluid. Abdominal wall: Unremarkable Spine: Degenerative spondylosis. 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 IMPRESSION: 1. Colonic diverticulosis without evidence of acute diverticulitis. 2. Prostatomegaly urinary bladder wall thickening could be due to chronic outlet obstruction, correlate for cystitis. Note that the prostate is difficult to distinguish from the inferior urinary bladder wall thickening and mass is not excludable. 3. Renal lesions, most likely cysts. Electronically signed by: Hugo Marie MD (03/15/2018 10:04 AM) [facility]
[2018-03-15 10:09] LABS: BILIRUBIN,URINE NEG (NEG); CLARITY,URINE CLEAR; COLOR,URINE YELLOW; GLUCOSE,URINE NEG (NEG)
[2018-03-15 10:10] LABS: BACTERIA,URINE 0 /HPF (0-FEW); NITRITE,URINE NEG (NEG); RBC,URINE 0 /HPF (0-2); SQUAMOUS EPITHELIAL CELL,UR OCC /LPF; UROBILINOGEN,URINE 0.2 mg/dL (0.2 mg/dL); WBC,URINE 0 /HPF (0-4)
--- NOTE | 2018-03-15 10:25 | EKG ---
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
[2018-03-15 10:32] VITALS: BP 197/88
--- NOTE | 2018-03-15 10:53 | PHYS DOC ---
Past History Past Medical History: Anxiety, Diabetes, GERD, High Cholesterol, Hypertension Additional Past Medical Histor: elevated harmony Past Surgical History: Cholecystectomy Smoking: Non-smoker Alcohol Use: None Drug Use: None Adult General Chief Complaint Chief Complaint: ABDOMINAL PAIN HPI HPI Patient is a 88 year old male with history of anxiety and frequent emergency room visits and chronic nausea for 4 years who presents with complaining of nausea for the last 2 days. Patient states he was not able to eat or drink anything because of nausea and tightness in epigastric area after eating food. Patient denies chest pain, shortness of breath, palpitation, diarrhea and constipation, urinary symptom. She states he took his home medication for nausea and didn't feel better. Review of Systems Review of Systems Constitutional: Denies fever or chills [] Eyes: Denies change in visual acuity, redness, or eye pain [] HENT: Denies nasal congestion or sore throat [] Respiratory: Denies cough or shortness of breath [] Cardiovascular: No additional information not addressed in HPI [] GI: Reports abdominal pain, nausea, denies vomiting, bloody stools or diarrhea [ ] : Denies dysuria or hematuria [] Musculoskeletal: Denies back pain or joint pain [] Integument: Denies rash or skin lesions [] Neurologic: Denies headache, focal weakness or sensory changes [] Endocrine: Denies polyuria or polydipsia [] All other systems were reviewed and found to be within normal limits, except as documented in this note. Current Medications Current Medications Current Medications Medications (Trade) Dose Ordered Sig/Arthur Start Time Stop Time Status Last Admin Dose Admin Famotidine (Pepcid Vial) 20 mg 1X ONCE 03/15/18 11:00 03/15/18 11:01 03/15/18 10:38 20 MG Ondansetron HCl (Zofran) 4 mg 1X ONCE 03/15/18 11:00 03/15/18 11:01 03/15/18 10:37 4 MG Allergies Allergies Allergies Coded Allergies Type Severity Reaction Last Updated Verified morphine Allergy Intermediate Anxiety 01/17/18 Yes hydromorphone HCl Adverse Reaction Severe severe anxiety 11/12/17 Yes Physical Exam Physical Exam Constitutional: Well nourished, mild distress, non-toxic appearance, anxious. [] HENT: Normocephalic, atraumatic, oropharynx moist, no oral exudates, nose normal. [] Eyes: PERRLA, EOMI, conjunctiva normal, no discharge. [] Neck: Normal range of motion, no tenderness, supple, no stridor. [] Cardiovascular:Heart rate regular rhythm, no murmur [] Lungs & Thorax: Bilateral breath sounds clear to auscultation [] Abdomen: Bowel sounds normal, soft, no tenderness, no masses, no pulsatile masses. [] Skin: Warm, dry, no erythema, no rash. [] Back: No tenderness, no CVA tenderness. [] Extremities: No tenderness, no cyanosis, no clubbing, ROM intact, no edema. [] Neurologic: Alert and oriented X 3, normal motor function, normal sensory function, no focal deficits noted. [] Psychologic: Affect anxious, judgement normal, mood normal. [] Current Patient Data Vital Signs Vital Signs Date Time Temp Pulse Resp B/P (MAP) Pulse Ox O2 Delivery O2 Flow Rate FiO2 03/15/18 10:32 77 18 94 Room Air Lab Results Laboratory Tests Test 03/15/18 08:54 03/15/18 09:28 White Blood Count 6.2 x10^3/uL (4.0-11.0) Red Blood Count 4.76 x10^6/uL (4.30-5.70) Hemoglobin 14.5 g/dL (13.0-17.5) Hematocrit 42.7 % (39.0-53.0) Mean Corpuscular Volume 90 fL (79-100) Mean Corpuscular Hemoglobin 31 pg (25-35) Mean Corpuscular Hemoglobin Concent 34 g/dL (31-37) Red Cell Distribution Width 13.8 % (11.5-14.5) Platelet Count 228 x10^3/uL (140-400) Neutrophils (%) (Auto) 61 % (31-73) Lymphocytes (%) (Auto) 25 % (24-48) Monocytes (%) (Auto) 12 % (0-9) H Eosinophils (%) (Auto) 1 % (0-3) Basophils (%) (Auto) 1 % (0-3) Neutrophils # (Auto) 3.8 x10^3uL (1.8-7.7) Lymphocytes # (Auto) 1.6 x10^3/uL (1.0-4.8) Monocytes # (Auto) 0.8 x10^3/uL (0.0-1.1) Eosinophils # (Auto) 0.1 x10^3/uL (0.0-0.7) Basophils # (Auto) 0.0 x10^3/uL (0.0-0.2) Sodium Level 136 mmol/L (136-145) Potassium Level 3.7 mmol/L (3.5-5.1) Chloride Level 102 mmol/L (98-107) Carbon Dioxide Level 26 mmol/L (21-32) Anion Gap 8 (6-14) Blood Urea Nitrogen 28 mg/dL (8-26) H Creatinine 2.1 mg/dL (0.7-1.3) H Estimated GFR (Cockcroft-Gault) 30.1 BUN/Creatinine Ratio 13 (6-20) Glucose Level 130 mg/dL (70-99) H Calcium Level 8.6 mg/dL (8.5-10.1) Total Bilirubin 1.1 mg/dL (0.2-1.0) H Aspartate Amino Transferase (AST) 30 U/L (15-37) Alanine Aminotransferase (ALT) 39 U/L (16-63) Alkaline Phosphatase 108 U/L (46-116) Troponin I Quantitative < 0.017 ng/mL (0-0.055) Total Protein 6.9 g/dL (6.4-8.2) Albumin 3.5 g/dL (3.4-5.0) Albumin/Globulin Ratio 1.0 (1.0-1.7) Lipase 118 U/L (73-393) Urine Collection Type Unknown Urine Color Yellow Urine Clarity Clear Urine pH 7.0 Urine Specific [place] 1.020 Urine Protein 100 mg/dl (NEG-TRACE) Urine Glucose (UA) Neg mg/dL (NEG) Urine Ketones (Stick) Trace mg/dL (NEG) Urine Blood Trace (NEG) Urine Nitrite Neg (NEG) Urine Bilirubin Neg (NEG) Urine Urobilinogen Dipstick 0.2 mg/dL (0.2 mg/dL) Urine Leukocyte Esterase Neg (NEG) Urine RBC 0 /HPF (0-2) Urine WBC 0 /HPF (0-4) Urine Squamous Epithelial Cells Occ /LPF Urine Bacteria 0 /HPF (0-FEW) EKG EKG EKG interpreted by me. EKG at 0824 showed normal sinus rhythm at rate of 64, left axis deviation, left anterior fascicular block, left ventricular hypertrophy, poor R-wave progress in anteroseptal leads, no acute ST and T-wave abnormalities. Radiology/Procedures Radiology/Procedures [] Course & Med Decision Making Course & Med Decision Making Pertinent Labs reviewed. (See chart for details) Evaluation of patient in ER showed 88-year-old male patient with frequent emergency room visits and anxiety and chronic nausea complaining of nausea for 3 days. Patient had unremarkable physical exam except for anxiety. Labs showed chronic renal insufficiency without electrolyte problem or sign of malnutrition patient instructed to follow-up with his primary care physician for referral to GI specialist. He stated he knows something is wrong with him and was not happy with the diagnosis but didn't want to have hospitalization. Dragon Disclaimer Dragon Disclaimer This electronic medical record was generated, in whole or in part, using a voice recognition dictation system. Departure Departure: Impression: Primary Impression: Chronic nausea Additional Impressions: Chronic renal insufficiency Uncontrolled diabetes mellitus Anxiety Disposition: HOME, SELF-CARE (@1051) Condition: STABLE Referrals: ALAN ARTEAGA MD (PCP) Patient Instructions: Nausea, Adult Additional Instructions: Follow-up with your primary care physician for referral to GI specialist for chronic nausea Continue home medication Problem Qualifiers BUCK ZAVALETA MD Mar 15, 2018 10:53
[2018-03-15] MEDS ORDERED: ONDANSETRON PF 4 MG/2 ML VIAL. IV ONE (11:00)
[2018-03-15] MEDS ORDERED: FAMOTIDINE 20 MG/2 ML VIAL IVP ONE (11:00)
== END 2018-03-15 11:08 | disposition home or self-care (01) ==
LOC: ER 08:12
DX: R11.0 Nausea (principal); R10.13 Epigastric pain; E11.22 Type 2 diabetes mellitus with diabetic chronic kidney disease; I12.9 Hypertensive chronic kidney disease with stage 1 through stage 4 chronic kidney disease, or unspecified chronic kidney disease; N18.9 Chronic kidney disease, unspecified; F41.9 Anxiety disorder, unspecified; K21.9 Gastro-esophageal reflux disease without esophagitis; E78.00 Pure hypercholesterolemia, unspecified; Z90.49 Acquired absence of other specified parts of digestive tract; Z88.5 Allergy status to narcotic agent
CPT/HCPCS: 36415; 74176; 80053; 81001; 83690; 84484; 85025; 93005; 96374; 96375; 99285; J2405; S0028

== ENCOUNTER 2019-03-02 14:58 | Emergency (ER) | payer MEDICARE ==
[~2019-03-02] VITALS: Ht 188 cm; Wt 131.5 kg
[~2019-03-02 14:58] MED LIST changes: +AMLO5TAB10 PO; -AMLO5TAB7 PO; +OMEP20CA10 PO; -OMEP20CA9 PO; +SIMV80TA17 PO; -SIMV80TA7 PO
[2019-03-02 15:05] VITALS: BP 163/82
[2019-03-02] MEDS ORDERED: IV NORMAL SALINE 1,000ML 1,000 ML IV ONE (15:45)
[2019-03-02] MEDS ORDERED: ONDANSETRON PF 4 MG/2 ML VIAL. IV ONE (15:45)
[2019-03-02 16:18] LABS: BASO % 1 % (0-3); EOS # 0.1 x10^3/uL (0.0-0.7); EOS % 1 % (0-3); HEMATOCRIT 42.7 % (39.0-53.0); HEMOGLOBIN 14.4 g/dL (13.0-17.5); LYMPH # 2.4 x10^3/uL (1.0-4.8); LYMPH % 30 % (24-48); MEAN CORPUSCULAR HEMOGLOBIN 31 pg (25-35); MEAN CORPUSCULAR HGB CONC 34 g/dL (31-37); MEAN CORPUSCULAR VOLUME 92 fL (79-100); MONO # 1.1 x10^3/uL (0.0-1.1); MONO % 13 % (0-9); NEUT # 4.5 x10^3uL (1.8-7.7); NEUT % 55 % (31-73); PLATELET COUNT 226 x10^3/uL (140-400); RED BLOOD COUNT 4.67 x10^6/uL (4.30-5.70); RED CELL DISTRIBUTION WIDTH 14.2 % (11.5-14.5); WHITE BLOOD COUNT 8.2 x10^3/uL (4.0-11.0)
[2019-03-02 16:20] LABS: BILIRUBIN,URINE NEG (NEG); CLARITY,URINE CLEAR; COLOR,URINE YELLOW; GLUCOSE,URINE NEG (NEG)
[2019-03-02 16:21] LABS: NITRITE,URINE NEG (NEG); UROBILINOGEN,URINE 0.2 mg/dL (0.2 mg/dL)
[2019-03-02 16:25] LABS: ALBUMIN 3.4 g/dL (3.4-5.0); ALBUMIN/GLOBULIN RATIO 0.9 (1.0-1.7); CALCIUM 8.6 mg/dL (8.5-10.1); CREATININE 2.3 mg/dL (0.7-1.3); TOTAL BILIRUBIN 0.5 mg/dL (0.2-1.0)
[2019-03-02 16:27] LABS: BACTERIA,URINE 0 /HPF (0-FEW); RBC,URINE 0 /HPF (0-2); WBC,URINE 0 /HPF (0-4)
[2019-03-02 16:28] LABS: HYALINE CASTS, URINE OCC /HPF; SQUAMOUS EPITHELIAL CELL,UR OCC /LPF
--- NOTE | 2019-03-02 16:45 | PHYS DOC ---
Past History Past Medical History: Diabetes, GERD Additional Past Medical Histor: elevated harmony Past Surgical History: Cholecystectomy Smoking: Non-smoker Alcohol Use: None Drug Use: None Adult General Chief Complaint Chief Complaint: ABDOMINAL PAIN HPI HPI Patient is a 89-year-old male presenting with nausea. Symptoms started after he was siphoning gasoline yesterday this is a common procedure for him he got some in his mouth he thinks he swallowed just a small amount definitely less than a cup a mouthful at the most probably less he tried to spit out a lot of it no abdominal pain just feel sick to his stomach since that happened he has had issues with nausea on a fairly chronic basis in the past he is on Prilosec as well as Zofran from review of his [facility] medications that he showed me. Denies chest pain abdominal pain fever or diarrhea Review of Systems Review of Systems Constitutional: Denies fever or chills [] Eyes: Denies change in visual acuity, redness, or eye pain [] HENT: Denies nasal congestion or sore throat [] Respiratory: Denies cough or shortness of breath [] Cardiovascular: No additional information not addressed in HPI [] G\ Integument: Denies rash or skin lesions [] Neurologic: Denies headache, focal weakness or sensory changes [] Endocrine: Denies polyuria or polydipsia [] All other systems were reviewed and found to be within normal limits, except as documented in this note. Current Medications Current Medications Current Medications Medications (Trade) Dose Ordered Sig/Arthur Start Time Stop Time Status Last Admin Dose Admin Ondansetron HCl (Zofran) 4 mg 1X ONCE 03/02/19 15:45 03/02/19 15:46 DC 03/02/19 16:00 4 MG Sodium Chloride 1,000 ml @ 1,000 mls/hr 1X ONCE 03/02/19 15:45 03/02/19 16:44 03/02/19 15:59 1,000 MLS/HR Allergies Allergies Allergies Coded Allergies Type Severity Reaction Last Updated Verified morphine Allergy Intermediate Anxiety 01/17/18 Yes hydromorphone HCl Adverse Reaction Severe severe anxiety 11/12/17 Yes Physical Exam Physical Exam Constitutional: Well developed, well nourished, no acute distress, non-toxic appearance. [] HENT: Normocephalic, atraumatic, bilateral external ears normal, oropharynx moist, no oral exudates, nose normal. [] Eyes: PERRLA, EOMI, conjunctiva normal, no discharge. [] Neck: Normal range of motion, no tenderness, supple, no stridor. [] Cardiovascular:Heart rate regular rhythm, no murmur [] Lungs & Thorax: Bilateral breath sounds clear to auscultation [] Abdomen: Bowel sounds normal, soft, no tenderness, no masses, no pulsatile masses. [] Skin: Warm, dry, no erythema, no rash. [] Back: No tenderness, no CVA tenderness. [] Extremities: No tenderness, no cyanosis, no clubbing, ROM intact, no edema. [] Neurologic: Alert and oriented X 3, normal motor function, normal sensory function, no focal deficits noted. [] Psychologic: Affect normal, judgement normal, mood normal. [] Current Patient Data Vital Signs Vital Signs Date Time Temp Pulse Resp B/P (MAP) Pulse Ox O2 Delivery O2 Flow Rate FiO2 03/02/19 15:05 98.4 70 24 94 Room Air * Mild Temperature (Fahrenheit): * 98.4 degrees F (97.6-99.5) Patient Temperature * 98.4 degrees F (97.5-99.5) Temperature Source * Oral Blood Pressure Systolic * 163 mm Hg (100-140) H Blood Pressure Diastolic * 82 mm Hg (60-100) Blood Pressure Mean * 109 mm Hg Blood Pressure Location * Right Radial Artery Blood Pressure Source * Automatic Cuff Pulse Rate * 70 beats per minute (60-90) Pulse Assessment Method * Monitor Respiratory Rate * 24 breaths per minute (12-24) Oxygen Delivery Method * Room Air Bedside Pulse Oximetry * 94 % Lab Results Laboratory Tests Test 03/02/19 15:50 White Blood Count 8.2 x10^3/uL (4.0-11.0) Red Blood Count 4.67 x10^6/uL (4.30-5.70) Hemoglobin 14.4 g/dL (13.0-17.5) Hematocrit 42.7 % (39.0-53.0) Mean Corpuscular Volume 92 fL (79-100) Mean Corpuscular Hemoglobin 31 pg (25-35) Mean Corpuscular Hemoglobin Concent 34 g/dL (31-37) Red Cell Distribution Width 14.2 % (11.5-14.5) Platelet Count 226 x10^3/uL (140-400) Neutrophils (%) (Auto) 55 % (31-73) Lymphocytes (%) (Auto) 30 % (24-48) Monocytes (%) (Auto) 13 % (0-9) H Eosinophils (%) (Auto) 1 % (0-3) Basophils (%) (Auto) 1 % (0-3) Neutrophils # (Auto) 4.5 x10^3uL (1.8-7.7) Lymphocytes # (Auto) 2.4 x10^3/uL (1.0-4.8) Monocytes # (Auto) 1.1 x10^3/uL (0.0-1.1) Eosinophils # (Auto) 0.1 x10^3/uL (0.0-0.7) Basophils # (Auto) 0.0 x10^3/uL (0.0-0.2) Urine Collection Type Unknown Urine Color Yellow Urine Clarity Clear Urine pH 6.0 Urine Specific [place] 1.025 Urine Protein 100 mg/dl (NEG-TRACE) Urine Glucose (UA) Neg mg/dL (NEG) Urine Ketones (Stick) Neg mg/dL (NEG) Urine Blood Neg (NEG) Urine Nitrite Neg (NEG) Urine Bilirubin Neg (NEG) Urine Urobilinogen Dipstick 0.2 mg/dL (0.2 mg/dL) Urine Leukocyte Esterase Neg (NEG) Urine RBC 0 /HPF (0-2) Urine WBC 0 /HPF (0-4) Urine Squamous Epithelial Cells Occ /LPF Urine Bacteria 0 /HPF (0-FEW) Urine Hyaline Casts Occ /HPF Sodium Level 139 mmol/L (136-145) Potassium Level 4.0 mmol/L (3.5-5.1) Chloride Level 104 mmol/L (98-107) Carbon Dioxide Level 26 mmol/L (21-32) Anion Gap 9 (6-14) Blood Urea Nitrogen 35 mg/dL (8-26) H Creatinine 2.3 mg/dL (0.7-1.3) H Estimated GFR (Cockcroft-Gault) 27.0 BUN/Creatinine Ratio 15 (6-20) Glucose Level Pending Calcium Level 8.6 mg/dL (8.5-10.1) Total Bilirubin 0.5 mg/dL (0.2-1.0) Aspartate Amino Transferase (AST) 21 U/L (15-37) Alanine Aminotransferase (ALT) 19 U/L (16-63) Alkaline Phosphatase 116 U/L (46-116) Troponin I Quantitative < 0.017 ng/mL (0-0.055) Total Protein 7.0 g/dL (6.4-8.2) Albumin 3.4 g/dL (3.4-5.0) Albumin/Globulin Ratio 0.9 (1.0-1.7) L Lipase 110 U/L (73-393) EKG EKG []EKG shows a normal sinus rhythm rate of 65 no STEMI no ischemia QTC 446 interpreted by me time of encounter Radiology/Procedures Radiology/Procedures [] Course & Med Decision Making Course & Med Decision Making Pertinent Labs and Imaging studies reviewed. (See chart for details) []noted cr at baseline glucose trop/ekg negative pt well appearing benign abdomen. 89 yo m with nausea after siphonign gasoline suspect gi toxicity self limited vitals look good. pt has hx of chronic nausea and no abdominal ttp noted, labs look good. reassruanace provided. pt was feeling much better after er treatment. Dragon Disclaimer Dragon Disclaimer This electronic medical record was generated, in whole or in part, using a voice recognition dictation system. Departure Departure: Impression: Primary Impression: Chronic nausea Disposition: HOME, SELF-CARE Condition: STABLE Referrals: ALAN ARTEAGA MD (PCP) ELE ROJAS MD Mar 02, 2019 16:45
--- NOTE | 2019-03-03 22:33 | EKG ---
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
== END 2019-03-02 17:15 | disposition home or self-care (01) ==
LOC: ER 15:04
DX: R11.0 Nausea (principal); E11.9 Type 2 diabetes mellitus without complications; K21.9 Gastro-esophageal reflux disease without esophagitis; Z90.49 Acquired absence of other specified parts of digestive tract; Z88.5 Allergy status to narcotic agent
CPT/HCPCS: 36415; 80053; 81001; 83690; 84484; 85025; 93005; 96374; 99285; J2405; J7030

== ENCOUNTER 2019-05-22 14:20 | Emergency (ER) | payer MEDICARE ==
[~2019-05-22] VITALS: Ht 188 cm; Wt 132.7 kg
[~2019-05-22 14:20] MED LIST changes: -FELO5TAB PO; +FELO5TAB4 PO; -OMEP20CA10 PO; +OMEP20CA16 PO; +TRAZ-125 PO; -TRAZ-86 PO
[2019-05-22 16:01] LABS: CLARITY,URINE CLEAR; COLOR,URINE YELLOW
[2019-05-22 16:02] LABS: BACTERIA,URINE 0 /HPF (0-FEW); BILIRUBIN,URINE NEG (NEG); GLUCOSE,URINE NEG (NEG); NITRITE,URINE NEG (NEG); RBC,URINE 0 /HPF (0-2); SQUAMOUS EPITHELIAL CELL,UR OCC /LPF; UROBILINOGEN,URINE 0.2 mg/dL (0.2 mg/dL); WBC,URINE 0 /HPF (0-4)
[2019-05-22] MEDS ORDERED: LORazepam 1 MG TABLET ONE (16:29)
[2019-05-22] MEDS ORDERED: LORazepam 1 MG TABLET PO ONE (16:30)
--- NOTE | 2019-05-22 16:32 | PHYS DOC ---
Past History Past Medical History: Diabetes, GERD Additional Past Medical Histor: elevated harmony Past Surgical History: Cholecystectomy Smoking: Non-smoker Alcohol Use: None Drug Use: None Adult General Chief Complaint Chief Complaint: ANXIETY/PANIC ATTACK HPI HPI 89-year-old male presents with anxiety. The patient has anxiety at baseline and takes medication. He has tried his hydroxyzine without effect. He is taking all of his other medications. Patient had trouble sleeping last couple of days and just feels "amped up". He denies any drug use. He does not want to be admitted, he is just asking for something to take the edge off so he can feel more normal. He denies any other concerns or complaints at this time. Review of Systems Review of Systems Constitutional: Denies fever or chills [] Eyes: Denies change in visual acuity, redness, or eye pain [] HENT: Denies nasal congestion or sore throat [] Respiratory: Denies cough or shortness of breath [] Cardiovascular: No additional information not addressed in HPI [] GI: Denies abdominal pain, nausea, vomiting, bloody stools or diarrhea [] : Denies dysuria or hematuria [] Musculoskeletal: Denies back pain or joint pain [] Integument: Denies rash or skin lesions [] Neurologic: Denies headache, focal weakness or sensory changes [] Endocrine: Denies polyuria or polydipsia [] All other systems were reviewed and found to be within normal limits, except as documented in this note. Current Medications Current Medications Current Medications Medications (Trade) Dose Ordered Sig/[facility] Start Time Stop Time Status Last Admin Dose Admin Lorazepam (Ativan) 1 mg STK-MED ONCE 05/22/19 16:29 05/22/19 16:29 DC Allergies Allergies Allergies Coded Allergies Type Severity Reaction Last Updated Verified morphine Allergy Intermediate Anxiety 01/17/18 Yes hydromorphone HCl Adverse Reaction Severe severe anxiety 11/12/17 Yes Physical Exam Physical Exam Constitutional: Well developed, well nourished, no acute distress, non-toxic appearance. [] HENT: Normocephalic, atraumatic, bilateral external ears normal, oropharynx moist, no oral exudates, nose normal. [] Eyes: PERRLA, EOMI, conjunctiva normal, no discharge. [] Neck: Normal range of motion, no tenderness, supple, no stridor. [] Cardiovascular:Heart rate regular rhythm, no murmur [] Lungs & Thorax: Bilateral breath sounds clear to auscultation [] Abdomen: Bowel sounds normal, soft, no tenderness, no masses, no pulsatile masses. [] Skin: Warm, dry, no erythema, no rash. [] Back: No tenderness, no CVA tenderness. [] Extremities: No tenderness, no cyanosis, no clubbing, ROM intact, no edema. [] Neurologic: Alert and oriented X 3, normal motor function, normal sensory function, no focal deficits noted. [] Psychologic: Affect normal, judgement normal, mood anxious, pacing. [] Current Patient Data Vital Signs Vital Signs Date Time Temp Pulse Resp B/P (MAP) Pulse Ox O2 Delivery O2 Flow Rate FiO2 05/22/19 14:43 97.8 77 18 96 Room Air Lab Results Laboratory Tests Test 05/22/19 15:10 Urine Collection Type Unknown Urine Color Yellow Urine Clarity Clear Urine pH 5.5 Urine Specific [place] 1.015 Urine Protein 100 mg/dl (NEG-TRACE) Urine Glucose (UA) Neg mg/dL (NEG) Urine Ketones (Stick) Neg mg/dL (NEG) Urine Blood Trace (NEG) Urine Nitrite Neg (NEG) Urine Bilirubin Neg (NEG) Urine Urobilinogen Dipstick 0.2 mg/dL (0.2 mg/dL) Urine Leukocyte Esterase Neg (NEG) Urine RBC 0 /HPF (0-2) Urine WBC 0 /HPF (0-4) Urine Squamous Epithelial Cells Occ /LPF Urine Bacteria 0 /HPF (0-FEW) EKG EKG [] Radiology/Procedures Radiology/Procedures [] Course & Med Decision Making Course & Med Decision Making Pertinent Labs and Imaging studies reviewed. (See chart for details) The patient 1 mg of Ativan by mouth. He has an appointment with his primary care physician tomorrow. This should help him until he takes trazodone at bedtime. Make him more fully address his anxiety and his appointment tomorrow. He is stable for discharge at this time. [] Dragon Disclaimer Dragon Disclaimer This electronic medical record was generated, in whole or in part, using a voice recognition dictation system. Departure Departure: Impression: Primary Impression: Anxiety Disposition: 01 HOME, SELF-CARE Condition: STABLE Referrals: ALAN ARTEAGA MD (PCP) Patient Instructions: Anxiety and Panic Attacks, [id number] TAWNYA PEDROZA DO May 22, 2019 16:32
[2019-05-22 17:00] VITALS: BP 136/85
== END 2019-05-22 17:00 | disposition home or self-care (01) ==
LOC: ER 14:20
DX: F41.9 Anxiety disorder, unspecified (principal); E11.9 Type 2 diabetes mellitus without complications; K21.9 Gastro-esophageal reflux disease without esophagitis; Z88.5 Allergy status to narcotic agent
CPT/HCPCS: 81001; 99284

== ENCOUNTER 2019-06-06 08:55 | Emergency (ER) | payer MEDICARE ==
[2019-06-06 09:09] VITALS: BP 196/72
--- NOTE | 2019-06-06 11:38 | PHYS DOC ---
Past History Past Medical History: Anxiety, Depression, Diabetes, High Cholesterol, Hypertension Additional Past Medical Histor: elevated harmony Past Surgical History: No Surgical History Smoking: Non-smoker Alcohol Use: None Drug Use: None Adult General Chief Complaint Chief Complaint: ANXIETY/PANIC ATTACK HPI HPI Patient is a 89 year old M who presents with anxiety and high blood pressure. With states he has occasional panic attacks that are associated with high blood pressure and jitteriness. He feels that when he becomes distracted his symptoms improved immediately. He given example of talking to a friend on the phone improving his symptoms. He has no other associated symptoms at this time. He states that his symptoms are exacerbated by ruminating on stressful events and is past Review of Systems Review of Systems Constitutional: Denies fever or chills [] Eyes: Denies change in visual acuity, redness, or eye pain [] HENT: Denies nasal congestion or sore throat [] Respiratory: Denies cough or shortness of breath [] Cardiovascular: No additional information not addressed in HPI [] GI: Denies abdominal pain, nausea, vomiting, bloody stools or diarrhea [] : Denies dysuria or hematuria [] Musculoskeletal: Denies back pain or joint pain [] Integument: Denies rash or skin lesions [] Neurologic: Denies headache, focal weakness or sensory changes [] Endocrine: Denies polyuria or polydipsia [] All other systems were reviewed and found to be within normal limits, except as documented in this note. Family History Family History No pertinent family medical history was reported Current Medications Current Medications Current medications were reviewed Current Medications Medications (Trade) Dose Ordered Sig/[facility] Start Time Stop Time Status Last Admin Dose Admin Lorazepam (Ativan Inj) 0.5 mg 1X ONCE 06/06/19 11:10 06/06/19 11:11 DC 06/06/19 11:06 0.5 MG Allergies Allergies Allergies Coded Allergies Type Severity Reaction Last Updated Verified morphine Allergy Intermediate Anxiety 01/17/18 Yes hydromorphone HCl Adverse Reaction Severe severe anxiety 11/12/17 Yes Physical Exam Physical Exam Constitutional: Well developed, well nourished, non-toxic appearance. []Anxious appearing HENT: Normocephalic, atraumatic, Eyes: EOMI, conjunctiva normal, no discharge. [] Neck: Normal range of motion, no tenderness, supple, no stridor. [] Cardiovascular:Heart rate regular rhythm, no murmur [] Lungs & Thorax: Bilateral breath sounds clear to auscultation [] Abdomen: Bowel sounds normal, soft, no tenderness, no masses, no pulsatile masses. [] Skin: Warm, dry, no erythema, no rash. [] Extremities: No tenderness, no cyanosis, no clubbing, ROM intact, no edema. [] Neurologic: Alert and oriented X 3, normal motor function, normal sensory function, no focal deficits noted. [] Psychologic: Affect normal, judgement normal, anxious [] Current Patient Data Vital Signs Vital Signs Date Time Temp Pulse Resp B/P (MAP) Pulse Ox O2 Delivery O2 Flow Rate FiO2 06/06/19 09:09 69 18 99 Room Air EKG EKG [] Radiology/Procedures Radiology/Procedures [] Course & Med Decision Making Course & Med Decision Making Pertinent Labs and Imaging studies reviewed. (See chart for details) [] Dragon Disclaimer Dragon Disclaimer This electronic medical record was generated, in whole or in part, using a voice recognition dictation system. Departure Departure: Impression: Primary Impression: Anxiety Disposition: 01 HOME, SELF-CARE Condition: STABLE Referrals: ALAN ARTEAGA MD (PCP) Patient Instructions: Anxiety and Panic Attacks Additional Instructions: Yan was seen in the emergency department for anxiety. No emergency medical condition was found in history of physical exam. He was found have elevated blood pressure. After treating his anxiety his blood pressure significantly improved. He is advised follow-up with his primary care doctor as soon as possible for further management. Also advised to return to the emergency room if he develops new or worsening symptoms. JAGDEEP MCDONALD MD Jun 06, 2019 11:38
== END 2019-06-06 11:42 | disposition home or self-care (01) ==
LOC: ER 08:55
DX: F41.9 Anxiety disorder, unspecified (principal); I10 Essential (primary) hypertension; F32.9 Major depressive disorder, single episode, unspecified; E11.9 Type 2 diabetes mellitus without complications
CPT/HCPCS: 96374; 99284; J2060

== ENCOUNTER 2020-12-01 11:05 | Emergency (ER) | payer MEDICARE ==
[~2020-12-01] VITALS: Ht 188 cm; Wt 122.0 kg
[~2020-12-01 11:05] MED LIST changes: +AMLO-186 PO; -AMLO5TAB10 PO; +LISI10TA16 PO; -LISI10TA2 PO; +MULT-445 PO; -MULT1TAB52 PO
[2020-12-01] MEDS ORDERED: ALPRAZolam 0.25 MG TABLET PO ONE (12:30)
[2020-12-01] MEDS ORDERED: ONDANSETRON ODT 4 MG TAB.RAPDIS PO ONE (12:30)
[2020-12-01 12:51] LABS: BILIRUBIN,URINE NEG (NEG); CLARITY,URINE CLEAR; COLOR,URINE YELLOW; GLUCOSE,URINE NEG (NEG)
[2020-12-01 12:52] LABS: BACTERIA,URINE 0 /HPF (0-FEW); NITRITE,URINE NEG (NEG); RBC,URINE 0 /HPF (0-2); SQUAMOUS EPITHELIAL CELL,UR OCC /LPF; UROBILINOGEN,URINE 0.2 mg/dL (0.2 mg/dL); WBC,URINE OCC /HPF (0-4)
[2020-12-01 12:58] LABS: BASO # 0.1 x10^3/uL (0.0-0.2); BASO % 1 % (0-3); EOS # 0.1 x10^3/uL (0.0-0.7); EOS % 2 % (0-3); HEMATOCRIT 42.2 % (39.0-53.0); HEMOGLOBIN 14.1 g/dL (13.0-17.5); LYMPH # 1.9 x10^3/uL (1.0-4.8); LYMPH % 23 % (24-48); MEAN CORPUSCULAR HEMOGLOBIN 31 pg (25-35); MEAN CORPUSCULAR HGB CONC 34 g/dL (31-37); MEAN CORPUSCULAR VOLUME 91 fL (79-100); MONO # 0.9 x10^3/uL (0.0-1.1); MONO % 11 % (0-9); NEUT # 5.2 x10^3uL (1.8-7.7); NEUT % 64 % (31-73); PLATELET COUNT 254 x10^3/uL (140-400); RED BLOOD COUNT 4.63 x10^6/uL (4.30-5.70); RED CELL DISTRIBUTION WIDTH 13.3 % (11.5-14.5); WHITE BLOOD COUNT 8.2 x10^3/uL (4.0-11.0)
[2020-12-01 13:02] LABS: CALCIUM 8.5 mg/dL (8.5-10.1); CREATININE 2.4 mg/dL (0.7-1.3); GFR 25.7; POTASSIUM 4.6 mmol/L (3.5-5.1)
--- NOTE | 2020-12-01 13:33 | PHYS DOC ---
Past History Past Medical History: Anxiety, Depression, Diabetes, High Cholesterol, Hypertension Additional Past Medical Histor: elevated hamrony Past Surgical History: Cholecystectomy Smoking: Non-smoker Alcohol Use: None Drug Use: None General Adult EDM: Chief Complaint: ANXIETY/PANIC ATTACK HPI: HPI: Patient is a 89-year-old male who presents with anxiety. Patient states he has a history of anxiety attacks. Patient states that normally he takes hydroxyzine which helps with symptoms, but it has in the last couple of days. Patient denie s any recent cause for anxiety. Denies pain or any other complaints at this time. Patient is alert and oriented. Patient has history of anxiety/depression, hypertension, high cholesterol. Review of Systems: Review of Systems: Constitutional: Denies fever or chills Eyes: Denies change in visual acuity HENT: Denies nasal congestion or sore throat Respiratory: Denies cough or shortness of breath Cardiovascular: Denies chest pain or edema GI: Denies abdominal pain, nausea, vomiting, bloody stools or diarrhea : Denies dysuria Musculoskeletal: Denies back pain or joint pain Integument: Denies rash Neurologic: Denies headache, focal weakness or sensory changes Endocrine: Denies polyuria or polydipsia Lymphatic: Denies swollen glands Psychiatric: Reports depression or anxiety Current Medications: Current Meds: Current Medications Medications (Trade) Dose Ordered Sig/[facility] Start Time Stop Time Status Last Admin Dose Admin Alprazolam (Xanax) 0.25 mg 1X ONCE 12/01/20 12:30 12/01/20 12:32 DC 12/01/20 12:34 0.25 MG Ondansetron HCl (Zofran Odt) 4 mg 1X ONCE 12/01/20 12:30 12/01/20 12:32 DC 12/01/20 12:34 4 MG Allergies: Allergies: Allergies Coded Allergies Type Severity Reaction Last Updated Verified morphine Allergy Intermediate Anxiety 01/17/18 Yes losartan Allergy Unknown 12/01/20 Yes metformin Allergy Unknown 12/01/20 Yes propranolol Allergy Unknown 12/01/20 Yes hydromorphone HCl Adverse Reaction Severe severe anxiety 11/12/17 Yes Physical Exam: PE: Constitutional: Well developed, well nourished, no acute distress, non-toxic appearance. [] HENT: Normocephalic, atraumatic, bilateral external ears normal, oropharynx moist, no oral exudates, nose normal. [] Eyes: PERRLA, EOMI, conjunctiva normal, no discharge. [] Neck: Normal range of motion, no tenderness, supple, no stridor. [] Cardiovascular:Heart rate regular rhythm, no murmur [] Lungs & Thorax: Bilateral breath sounds clear to auscultation [] Abdomen: Bowel sounds normal, soft, no tenderness, no masses, no pulsatile masses. [] Skin: Warm, dry, no erythema, no rash. [] Back: No tenderness, no CVA tenderness. [] Extremities: No tenderness, no cyanosis, no clubbing, ROM intact, no edema. [] Neurologic: Alert and oriented X 3, normal motor function, normal sensory function, no focal deficits noted. [] Psychologic: Anxious, irritable Current Patient Data: Labs: Laboratory Tests Test 12/01/20 11:48 12/01/20 12:40 Urine Collection Type Unknown Urine Color Yellow Urine Clarity Clear Urine pH 7.[address] [place] 1.020 Urine Protein 100 mg/dl (NEG-TRACE) Urine Glucose (UA) Neg mg/dL (NEG) Urine Ketones (Stick) Neg mg/dL (NEG) Urine Blood Trace (NEG) Urine Nitrite Neg (NEG) Urine Bilirubin Neg (NEG) Urine Urobilinogen Dipstick 0.2 mg/dL (0.2 mg/dL) Urine Leukocyte Esterase Neg (NEG) Urine RBC 0 /HPF (0-2) Urine WBC Occ /HPF (0-4) Urine Squamous Epithelial Cells Occ /LPF Urine Bacteria 0 /HPF (0-FEW) White Blood Count 8.2 x10^3/uL (4.0-11.0) Red Blood Count 4.63 x10^6/uL (4.30-5.70) Hemoglobin 14.1 g/dL (13.0-17.5) Hematocrit 42.2 % (39.0-53.0) Mean Corpuscular Volume 91 fL (79-100) Mean Corpuscular Hemoglobin 31 pg (25-35) Mean Corpuscular Hemoglobin Concent 34 g/dL (31-37) Red Cell Distribution Width 13.3 % (11.5-14.5) Platelet Count 254 x10^3/uL (140-400) Neutrophils (%) (Auto) 64 % (31-73) Lymphocytes (%) (Auto) 23 % (24-48) L Monocytes (%) (Auto) 11 % (0-9) H Eosinophils (%) (Auto) 2 % (0-3) Basophils (%) (Auto) 1 % (0-3) Neutrophils # (Auto) 5.2 x10^3uL (1.8-7.7) Lymphocytes # (Auto) 1.9 x10^3/uL (1.0-4.8) Monocytes # (Auto) 0.9 x10^3/uL (0.0-1.1) Eosinophils # (Auto) 0.1 x10^3/uL (0.0-0.7) Basophils # (Auto) 0.1 x10^3/uL (0.0-0.2) Sodium Level 139 mmol/L (136-145) Potassium Level 4.6 mmol/L (3.5-5.1) Chloride Level 105 mmol/L (98-107) Carbon Dioxide Level 27 mmol/L (21-32) Anion Gap 7 (6-14) Blood Urea Nitrogen 31 mg/dL (8-26) H Creatinine 2.4 mg/dL (0.7-1.3) H Estimated GFR (Cockcroft-Gault) 25.7 Glucose Level 197 mg/dL (70-99) H Calcium Level 8.5 mg/dL (8.5-10.1) Vital Signs: Vital Signs Date Time Temp Pulse Resp B/P (MAP) Pulse Ox O2 Delivery O2 Flow Rate FiO2 12/01/20 12:32 66 18 174/58 (96) 95 Room Air 12/01/20 11:05 97.4 EKG: EKG: [] Sinus rhythm. Heart rate [address] Romero. Radiology/Procedures: Radiology/Procedures: [] Heart Score: C/O Chest Pain: No Risk Factors: Risk Factors: DM, Current or recent (<one month) smoker, HTN, HLP, family history of CAD, obesity. Risk Scores: Score 0 - 3: 2.5% MACE over next 6 weeks - Discharge Home Score 4 - 6: 20.3% MACE over next 6 weeks - Admit for Clinical Observation Score 7 - 10: 72.7% MACE over next 6 weeks - Early Invasive Strategies Course & Med Decision Making: Course & Med Decision Making Pertinent Labs and Imaging studies reviewed. (See chart for details) [] 89-year-old male presents with anxiety attack. Patient has a history of of anxiety and states that it has been worse than normal the last couple of days. Unknown cause. Patient normally takes hydroxyzine for symptoms. Patient states that medication was not working. Patient given 0.25 of Xanax and symptoms have improved. Patient was also reporting nausea which is normal for him with anxiety. Patient given 4 mg of Zofran. Patient's BUN and creatinine were elevated, but consistent with trend over the last few years/visits. Instructed patient to call PCP today and make a follow-up appointment to discuss BUN and creatinine and also alternative management for anxiety. Patient denies shortness of breath, chest pain. Patient is alert and oriented and hemodynamically stable. Patient is appreciative and okay with discharge plan. Dragon Disclaimer: Dragon Disclaimer: This electronic medical record was generated, in whole or in part, using a voice recognition dictation system. Departure Departure: Impression: Primary Impression: Anxiety Disposition: 01 HOME / SELF CARE / HOMELESS Condition: STABLE Referrals: ALAN ARTEAGA MD (PCP) Patient Instructions: Anxiety and Panic Attacks, [id number] Additional Instructions: You were seen in the emergency room for a anxiety attack and nausea. You were given Xanax along with Zofran to treat your symptoms. Your symptoms improved after medication. Please call your PCP and make a follow-up appointment for tomorrow for further management. Your creatinine was also elevated but appears to be the same as previous years. Please discuss this with your PCP as well. If you have worsening symptoms or concerns please return to the emergency room. EMERGENCY DEPARTMENT GENERAL DISCHARGE INSTRUCTIONS Thank you for coming to [facility] (ED) today and trusting us with you care. We trust that you had a positivie experience in our Emergency Department. If you wish to speak to the department management, you may call the director at [phone]. YOUR FOLLOW UP INSTRUCTIONS ARE FOLLOWS: 1. Do you have a private Doctor? If you do not have a private doctor, please ask for a resource list of physicians or clinics that may be able to assist you with follow up care. 2. The Emergency Physician has interpreted your x-rays. The X-Ray specialist will also review them. If there is a change in the findings, you will be notified in 48 hours when at all possible. 3. A lab test or culture has been done, your results will be reviewed and you will be notified if you need a change in treatment. ADDITIONAL INSTRUCTIONS AND INFORMATION: 1. Your care today has been supervised by a physician who is specially trained in emergency care. Many problems require more than one evaluation for a complete diagnosis and treatment. We recommend that you schedule your follow up appointment as recommended to ensure complete treatment of you illness or injury. If you are unable to obtain follow up care and continue to have a problem, or if your condition worsens, we recommend that you return to the ED. 2. We are not able to safely determine your condition over the phone nor are we able to give sound medical advice over the phone. For these safety reasons, if you call for medical advice we will ask you to come to the ED for further evaluation. 3. If you have any questions regarding these discharge instructions please call the ED at [phone]. SAFETY INFORMATION: In the interest of safety, wellness, and injury prevention; we encourage you to wear your sealbelt, if you smoke; quite smoking, and we encourage family to use a protective helmet for bicycling and other sporting events that present an increased risk for head injury. IF YOUR SYMPTOMS WORSEN OR NEW SYMPTOMS DEVELOP, OR YOU HAVE CONCERNS ABOUT YOUR CONDITION; OR IF YOUR CONDITION WORSENS WHILE YOU ARE WAITING FOR YOUR FOLLOW UP APPOINTMENT; EITHER CONTACT YOUR PRIMARY CARE DOCTOR, THE PHYSICIAN WHOSE NAME AND NUMBER YOU WERE GIVEN, OR RETURN TO THE ED IMMEDIATELY. KONG GARCIA APRN Dec 01, 2020 13:33
--- NOTE | 2020-12-01 13:37 | EKG ---
[address] [address] Test Date: 2020-12-01 Test Time: 12:22:18 Pat Name: SANGEETHA RODRÍGUEZ Department: Room: Gender: M Credentialer: CAESAR : 1930 Requested By: KONG GARCIA Order Number: [id number] Reading MD: Measurements Intervals [place] Rate: 66 P: -3 MI: 200 QRS: -25 QRSD: 108 T: 3 QT: 408 QTc: 429 Interpretive Statements SINUS RHYTHM LEFTWARD AXIS QRS(T) CONTOUR ABNORMALITY CONSIDER ANTEROSEPTAL MYOCARDIAL DAMAGE POSSIBLY ABNORMAL ECG RI6.02 No previous ECG available for comparison
[2020-12-01 13:47] VITALS: BP 135/56
== END 2020-12-01 13:47 | disposition home or self-care (01) ==
LOC: ER 11:05
DX: F41.9 Anxiety disorder, unspecified (principal); F32.9 Major depressive disorder, single episode, unspecified; E11.9 Type 2 diabetes mellitus without complications; E78.00 Pure hypercholesterolemia, unspecified; I10 Essential (primary) hypertension; Z88.5 Allergy status to narcotic agent; Z88.8 Allergy status to other drugs, medicaments and biological substances
CPT/HCPCS: 36415; 80048; 81001; 85025; 93005; 99284; Q0162

== ENCOUNTER 2020-12-11 02:35 | Emergency (ER) | payer MEDICARE ==
[~2020-12-11] VITALS: Ht 188 cm; Wt 122.0 kg
[2020-12-11 02:55] VITALS: BP 150/89
--- NOTE | 2020-12-11 03:07 | PHYS DOC ---
Past History Past Medical History: Anxiety, Depression, Diabetes, High Cholesterol, Hypertension Additional Past Medical Histor: elevated harmony Past Surgical History: Cholecystectomy Smoking: Non-smoker Alcohol Use: None Drug Use: None Adult General Chief Complaint Chief Complaint: ANXIETY/PANIC ATTACK HPI HPI Patient is an 89-year-old male with a past medical history significant for anxiety, prescribed Xanax who presents emergency department with an anxiety attack. States that about an hour before coming in he felt anxious, and scared and like he has to run away. States this is how it usually is when he has a panic attack. States he is prescribed Xanax and took 1 earlier in the morning yesterday but has not taken one since. Denies any headache, chest pain, shortness of breath, abdominal pain, nausea, vomiting, dysuria, hematuria, blood in the stool. Denies any alcohol or drug use. Denies any numbness/weakness /tingling. States that just before arriving to the emergency department all of his symptoms had resolved but came in because he was here and wanted asked questions. Review of Systems Review of Systems Review of systems otherwise unremarkable except noted in HPI Allergies Allergies Allergies Coded Allergies Type Severity Reaction Last Updated Verified morphine Allergy Intermediate Anxiety 01/17/18 Yes losartan Allergy Unknown 12/01/20 Yes metformin Allergy Unknown 12/01/20 Yes propranolol Allergy Unknown 12/01/20 Yes hydromorphone HCl Adverse Reaction Severe severe anxiety 11/12/17 Yes Physical Exam Physical Exam Constitutional: Well developed, well nourished, no acute distress, non-toxic appearance. [] HENT: Normocephalic, atraumatic, Eyes: PERRLA, EOMI, conjunctiva normal, no discharge. [] Neck: Normal range of motion, no tenderness, supple, no stridor. [] Cardiovascular:Heart rate regular rhythm, no murmur [] Lungs & Thorax: Bilateral breath sounds clear to auscultation [] Abdomen: soft, no tenderness, no masses, no pulsatile masses. [] Skin: Warm, dry, no erythema, no rash. [] Extremities: No tenderness, ROM intact, no edema. [] Neurologic: Alert and oriented X 3, no focal deficits noted. [] Psychologic: Affect normal, judgement normal, mood normal. [] EKG EKG [] Radiology/Procedures Radiology/Procedures [] Heart Score C/O Chest Pain: No Risk Factors: Risk Factors: DM, Current or recent (<one month) smoker, HTN, HLP, family history of CAD, obesity. Risk Scores: Risk Factors: DM, Current or recent (<one month) smoker, HTN, HLP, family history of CAD, obesity. Course & Med Decision Making Course & Med Decision Making Patient is an 89-year-old male who presents with panic attack Vital signs not concerning. Physical exam noted above. Patient stated that right before coming to the emergency department his symptoms actually resolved and he was feeling better but came anyway to ask questions. Discussed panic attacks and anxiety with patient and family. Patient does have Xanax at home but did not realize that they were also used as a rescue medication for panic attacks. States that he had taken 1 early yesterday morning because he thought he was supposed to just take 1 a day but did not realize it was one as needed. Discussed appropriate use of Xanax. Advised to go ahead and take 1 when he gets home. Advised to call his primary care physician in the morning to discuss his ED visit, anxiety and panic attacks and appropriate use of Xanax as well as long-term anxiety medications. Gave strict return precautions to the ED. Patient and family grateful, verbalized understanding and agreed with plan of discharge. [] Dragon Disclaimer Dragon Disclaimer This electronic medical record was generated, in whole or in part, using a voice recognition dictation system. Departure Departure: Impression: Primary Impression: Panic attack Disposition: HOME / SELF CARE / HOMELESS Condition: GOOD Referrals: ALAN ARETAGA MD (PCP) Patient Instructions: Anxiety and Panic Attacks Additional Instructions: Thank you for coming into the emergency department tonight and allowing us to take care of you. Please read all the attached information above very carefully to go back over things we discussed. As discussed your alprazolam that she take at home is for anxiety but it is also a rescue medication for panic attacks. If you feel a panic attack coming off, you can take 1 or just put one in your mouth and let it dissolve and they work very quickly. Please call your primary care physician first thing in the morning to update on your ED visit and set up a follow-up as soon as possible to discuss anxiety and panic attacks as well as management of these. Please come back to the ED immediately with new or concerning symptoms as discussed. NIRALI GARZA MD Dec 11, 2020 03:07
== END 2020-12-11 03:14 | disposition home or self-care (01) ==
LOC: ER 02:35
DX: F41.0 Panic disorder [episodic paroxysmal anxiety] (principal); F32.9 Major depressive disorder, single episode, unspecified; E11.9 Type 2 diabetes mellitus without complications; E78.5 Hyperlipidemia, unspecified; I10 Essential (primary) hypertension; Z90.49 Acquired absence of other specified parts of digestive tract; Z88.5 Allergy status to narcotic agent; Z88.8 Allergy status to other drugs, medicaments and biological substances
CPT/HCPCS: 99283

== ENCOUNTER 2020-12-14 01:27 | Emergency (ER) | payer MEDICARE ==
--- NOTE | 2020-12-14 02:30 | PHYS DOC ---
Past History Past Medical History: Anxiety, Depression, Diabetes, High Cholesterol, Hypertension Additional Past Medical Histor: elevated harmony Past Surgical History: Cholecystectomy Smoking: Non-smoker Alcohol Use: None Drug Use: None General Adult EDM: Chief Complaint: ANXIETY/PANIC ATTACK HPI: HPI: 89-year-old male presents with insomnia. The patient took his normal 0.25 of Xanax to go to sleep. He slept for half an hour and then was "wide-awake. Patient tells me he is unable to lay back down. He just has a general feeling of worry that will not let him go to sleep. He is here for some kind of additional sleep aid. He has no other complaints this time. Review of Systems: Review of Systems: Constitutional: Denies fever or chills. Insomnia Eyes: Denies change in visual acuity HENT: Denies nasal congestion or sore throat Respiratory: Denies cough or shortness of breath Cardiovascular: Denies chest pain or edema GI: Denies abdominal pain, nausea, vomiting, bloody stools or diarrhea : Denies dysuria Musculoskeletal: Denies back pain or joint pain Integument: Denies rash Neurologic: Denies headache, focal weakness or sensory changes Endocrine: Denies polyuria or polydipsia Lymphatic: Denies swollen glands Psychiatric: Denies depression or anxiety Allergies: Allergies: Allergies Coded Allergies Type Severity Reaction Last Updated Verified morphine Allergy Intermediate Anxiety 12/14/20 Yes losartan Allergy Unknown 12/14/20 Yes metformin Allergy Unknown 12/14/20 Yes propranolol Allergy Unknown 12/14/20 Yes hydromorphone HCl Adverse Reaction Severe severe anxiety 12/14/20 Yes Physical Exam: PE: Constitutional: Well developed, well nourished, no acute distress, non-toxic appearance. [] HENT: Normocephalic, atraumatic, bilateral external ears normal, oropharynx moist, no oral exudates, nose normal. [] Eyes: PERRLA, EOMI, conjunctiva normal, no discharge. [] Neck: Normal range of motion, no tenderness, supple, no stridor. [] Cardiovascular:Heart rate regular rhythm, no murmur [] Lungs & Thorax: Bilateral breath sounds clear to auscultation [] Abdomen: Bowel sounds normal, soft, no tenderness, no masses, no pulsatile masses. [] Skin: Warm, dry, no erythema, no rash. [] Back: No tenderness, no CVA tenderness. [] Extremities: No tenderness, no cyanosis, no clubbing, ROM intact, 3+ pitting edema to the bilateral knees. [] Neurologic: Alert and oriented X 3, normal motor function, normal sensory function, no focal deficits noted. [] Psychologic: Affect normal, judgement normal, mood normal. [] EKG: EKG: [] Radiology/Procedures: Radiology/Procedures: [] Heart Score: C/O Chest Pain: N/A Risk Factors: Risk Factors: DM, Current or recent (<one month) smoker, HTN, HLP, family history of CAD, obesity. Risk Scores: Score 0 - 3: 2.5% MACE over next 6 weeks - Discharge Home Score 4 - 6: 20.3% MACE over next 6 weeks - Admit for Clinical Observation Score 7 - 10: 72.7% MACE over next 6 weeks - Early Invasive Strategies Course & Med Decision Making: Course & Med Decision Making Pertinent Labs and Imaging studies reviewed. (See chart for details) I will give the patient 1 milligram of Ativan p.o. and 25 mg of Benadryl. He is stable for discharge at this time. [] Dragon Disclaimer: Dragon Disclaimer: This electronic medical record was generated, in whole or in part, using a voice recognition dictation system. Departure Departure: Impression: Primary Impression: Anxiety Additional Impression: Insomnia Qualified Codes: G47.00 - Insomnia, unspecified Disposition: HOME / SELF CARE / HOMELESS Condition: STABLE Referrals: ALAN ARTEAGA MD (PCP) Patient Instructions: Insomnia-Brief TAWNYA PEDROZA DO Dec 14, 2020 02:30
[2020-12-14] MEDS ORDERED: diphenhydrAMINE HCL 25 MG CAPSULE PO ONE (03:00)
[2020-12-14] MEDS ORDERED: LORazepam 1 MG TABLET PO ONE (03:00)
== END 2020-12-14 02:45 | disposition home or self-care (01) ==
LOC: ER 01:27
DX: F41.9 Anxiety disorder, unspecified (principal); G47.00 Insomnia, unspecified; F32.9 Major depressive disorder, single episode, unspecified; E11.9 Type 2 diabetes mellitus without complications; E78.5 Hyperlipidemia, unspecified; I10 Essential (primary) hypertension; Z90.49 Acquired absence of other specified parts of digestive tract; Z88.6 Allergy status to analgesic agent; Z88.8 Allergy status to other drugs, medicaments and biological substances
CPT/HCPCS: 99283; Q0163

== ENCOUNTER 2020-12-18 05:54 | Emergency (ER) | payer MEDICARE ==
[~2020-12-18] VITALS: Ht 188 cm; Wt 122.0 kg
[2020-12-18 06:00] VITALS: BP 159/77
--- NOTE | 2020-12-18 06:54 | PHYS DOC ---
Past History Past Medical History: Anxiety, Depression, Diabetes, High Cholesterol, Hypertension Additional Past Medical Histor: elevated harmony Past Surgical History: Cholecystectomy Smoking: Non-smoker Alcohol Use: None Drug Use: None General Adult EDM: Chief Complaint: ANXIETY/PANIC ATTACK HPI: HPI: 89-year-old male returns the emergency room with continued anxiety. I saw the patient in this emergency room a few days ago for similar complaint. He is having difficulty sleeping due to his anxiety and mood. He is worried that his psychological issues will make his leave him. This in the past. He is currently taking Xanax as a sleep aid. It is not helping. Patient has no other medical complaints this time. Review of Systems: Review of Systems: Constitutional: Denies fever or chills Eyes: Denies change in visual acuity HENT: Denies nasal congestion or sore throat Respiratory: Denies cough or shortness of breath Cardiovascular: Denies chest pain or edema GI: Denies abdominal pain, nausea, vomiting, bloody stools or diarrhea : Denies dysuria Musculoskeletal: Denies back pain or joint pain Integument: Denies rash Neurologic: Denies headache, focal weakness or sensory changes Endocrine: Denies polyuria or polydipsia Lymphatic: Denies swollen glands Psychiatric: anxiety Allergies: Allergies: Allergies Coded Allergies Type Severity Reaction Last Updated Verified morphine Allergy Intermediate Anxiety 12/14/20 Yes losartan Allergy Unknown 12/14/20 Yes metformin Allergy Unknown 12/14/20 Yes propranolol Allergy Unknown 12/14/20 Yes hydromorphone HCl Adverse Reaction Severe severe anxiety 12/14/20 Yes Physical Exam: PE: Constitutional: Well developed, well nourished, no acute distress, non-toxic appearance. [] HENT: Normocephalic, atraumatic, bilateral external ears normal, oropharynx moist, no oral exudates, nose normal. [] Eyes: PERRLA, EOMI, conjunctiva normal, no discharge. [] Neck: Normal range of motion, no tenderness, supple, no stridor. [] Cardiovascular:Heart rate regular rhythm, no murmur [] Lungs & Thorax: Bilateral breath sounds clear to auscultation [] Abdomen: Bowel sounds normal, soft, no tenderness, no masses, no pulsatile masses. [] Skin: Warm, dry, no erythema, no rash. [] Back: No tenderness, no CVA tenderness. [] Extremities: No tenderness, no cyanosis, no clubbing, ROM intact, no edema. [] Neurologic: Alert and oriented X 3, normal motor function, normal sensory function, no focal deficits noted. [] Psychologic: Affect normal, judgement normal, mood anxious [] Current Patient Data: Vital Signs: Vital Signs Date Time Temp Pulse Resp B/P (MAP) Pulse Ox O2 Delivery O2 Flow Rate FiO2 8 06:00 97.9 75 22 159/77 Room Air EKG: EKG: [] Radiology/Procedures: Radiology/Procedures: [] Heart Score: C/O Chest Pain: N/A Risk Factors: Risk Factors: DM, Current or recent (<one month) smoker, HTN, HLP, family history of CAD, obesity. Risk Scores: Score 0 - 3: 2.5% MACE over next 6 weeks - Discharge Home Score 4 - 6: 20.3% MACE over next 6 weeks - Admit for Clinical Observation Score 7 - 10: 72.7% MACE over next 6 weeks - Early Invasive Strategies Course & Med Decision Making: Course & Med Decision Making Pertinent Labs and Imaging studies reviewed. (See chart for details) After a long conversation with the nurse, patient states feeling better and b eing less anxious. The nurse and I talked with the patient and his a bit more and gave them some ideas of things like to talk about with her primary physician to adjust his treatment of anxiety and sleep disorder. He is stable for discharge at this time. [] Dragon Disclaimer: Dragon Disclaimer: This electronic medical record was generated, in whole or in part, using a voice recognition dictation system. Departure Departure: Impression: Primary Impression: Anxiety Disposition: HOME / SELF CARE / HOMELESS Condition: STABLE Referrals: ALAN ARTEAGA MD (PCP) Patient Instructions: Anxiety and Panic Attacks, [id number] TAWNYA PEDROZA DO Dec 18, 2020 06:54
== END 2020-12-18 07:00 | disposition home or self-care (01) ==
LOC: ER 05:54
DX: F41.9 Anxiety disorder, unspecified (principal); F32.9 Major depressive disorder, single episode, unspecified; E11.9 Type 2 diabetes mellitus without complications; E78.5 Hyperlipidemia, unspecified; I10 Essential (primary) hypertension; Z88.5 Allergy status to narcotic agent; Z88.8 Allergy status to other drugs, medicaments and biological substances; Z90.49 Acquired absence of other specified parts of digestive tract
CPT/HCPCS: 99281

== ENCOUNTER 2020-12-18 11:36 | Emergency (ER) | payer MEDICARE ==
[~2020-12-18] VITALS: Ht 188 cm; Wt 122.0 kg
--- NOTE | 2020-12-18 12:11 | PHYS DOC ---
Past History Past Medical History: Anxiety, Depression, Diabetes, High Cholesterol, Hypertension Additional Past Medical Histor: elevated harmony (ENE LI APRN) Past Surgical History: Cholecystectomy (ENE LI APRN) Smoking: Non-smoker Alcohol Use: None Drug Use: None (ENE LI APRN) General Adult EDM: Chief Complaint: ANXIETY/PANIC ATTACK HPI: HPI: Patient is an 89-year-old male who presents to the ER today for anxiety. Patient was seen in this ER this morning for similar complaints but after speaking with the ER staff decided to go home. Patient was discharged from the ER and asked to follow-up with his primary care provider regarding management of his anxiety. Patient reports that he went home and took his Xanax as prescribed but did not call his primary care provider. Patient reports that " focuses on his anxiety and makes it worse". Patient reports that when he feels anxious he gets a bad feeling in his stomach that feeling in his anxiety is relieved when he talks to people about it. Patient has no current complaints. I discussed with patient medical clearance and evaluation by the psychiatric assessment team. Patient is agreeable to plan. Patient is also agreeable to potential inpatient psych hospitalization. Patient denies suicidal/homicidal ideation. (ENE LI APRN) Review of Systems: Review of Systems: 14 body systems of the review of systems have been reviewed. See HPI for pertinent positive and negative responses, otherwise all other systems are negative, nonpertinent or noncontributory (ENE LI APRN) Allergies: Allergies: Allergies Coded Allergies Type Severity Reaction Last Updated Verified morphine Allergy Intermediate Anxiety 12/14/20 Yes losartan Allergy Unknown 12/14/20 Yes metformin Allergy Unknown 12/14/20 Yes propranolol Allergy Unknown 12/14/20 Yes hydromorphone HCl Adverse Reaction Severe severe anxiety 12/14/20 Yes (ENE LI APRN) Physical Exam: PE: Constitutional: Well developed, well nourished, no acute distress, non-toxic appearance. [] HENT: Normocephalic, atraumatic Eyes: PERRLA, EOMI, conjunctiva normal, no discharge. [] Neck: Normal range of motion, no tenderness, supple, no stridor. [] Cardiovascular:Heart rate regular rhythm, no murmur [] Lungs & Thorax: Bilateral breath sounds clear to auscultation [] Abdomen: Bowel sounds normal, soft, no tenderness, no masses, no pulsatile masses. [] Skin: Warm, dry, no erythema, no rash. [] Back: Normal range of motion Extremities: No tenderness, no cyanosis, no clubbing, ROM intact, 2+ pitting edema noted to bilateral lower extremities patient reports that this is his baseline edema and there is no increase in it. Neurologic: Alert and oriented X 3, normal motor function, normal sensory function, no focal deficits noted. [] Psychologic: Affect normal, judgement normal, mood normal. [] (ENE LI APRN) Current Patient Data: Labs: Laboratory Tests Test 12/18/20 12:11 White Blood Count 7.1 x10^3/uL Red Blood Count 4.22 x10^6/uL Hemoglobin 12.9 g/dL Hematocrit 38.3 % Mean Corpuscular Volume 91 fL Mean Corpuscular Hemoglobin 31 pg Mean Corpuscular Hemoglobin Concent 34 g/dL Red Cell Distribution Width 13.7 % Platelet Count 228 x10^3/uL Neutrophils (%) (Auto) 69 % Lymphocytes (%) (Auto) 20 % Monocytes (%) (Auto) 10 % Eosinophils (%) (Auto) 1 % Basophils (%) (Auto) 1 % Neutrophils # (Auto) 4.9 x10^3uL Lymphocytes # (Auto) 1.4 x10^3/uL Monocytes # (Auto) 0.7 x10^3/uL Eosinophils # (Auto) 0.1 x10^3/uL Basophils # (Auto) 0.0 x10^3/uL Sodium Level 139 mmol/L Potassium Level 4.1 mmol/L Chloride Level 104 mmol/L Carbon Dioxide Level 28 mmol/L Anion Gap 7 Blood Urea Nitrogen 28 mg/dL Creatinine 2.6 mg/dL Estimated GFR (Cockcroft-Gault) 23.4 BUN/Creatinine Ratio 11 Glucose Level 260 mg/dL Calcium Level 8.2 mg/dL Total Bilirubin 0.9 mg/dL Aspartate Amino Transf (AST/SGOT) 23 U/L Alanine Aminotransferase (ALT/SGPT) 28 U/L Alkaline Phosphatase 137 U/L Troponin I Quantitative < 0.017 ng/mL Total Protein 6.7 g/dL Albumin 3.2 g/dL Albumin/Globulin Ratio 0.9 (ENE LI APRN) EKG: EKG: [] (ENE LI APRN) Radiology/Procedures: Radiology/Procedures: [] (ENE LI APRN) Heart Score: C/O Chest Pain: No Risk Factors: Risk Factors: DM, Current or recent (<one month) smoker, HTN, HLP, family history of CAD, obesity. Risk Scores: Score 0 - 3: 2.5% MACE over next 6 weeks - Discharge Home Score 4 - 6: 20.3% MACE over next 6 weeks - Admit for Clinical Observation Score 7 - 10: 72.7% MACE over next 6 weeks - Early Invasive Strategies (ENE LI APRN) Course & Med Decision Making: Course & Med Decision Making Pertinent Labs and Imaging studies reviewed. (See chart for details) [] Patient is an 89-year-old male being seen in the ER for anxiety. Screening lab work was obtained in the ER. CBC unremarkable. Patient has elevated BUN and creatinine which is chronic for him and blood sugar of 260, he has a history of diabetes. Patient evaluated by psychiatric assessment team. George at bedside at this time 1311. George with the psychiatric assessment team and patient discussed his anxiety and insomnia. He reports that this stems from his leaving for 3 weeks 3 years ago. Etelvina reports that they discussed coping skills for patient. A safety plan was developed. Patient to follow-up with Dr. Arteaga for medications for anxiety and insomnia. Patient is aware that he needs to call Dr. Arteaga's care tomorrow to set up a follow-up appointment. Patient also given resources about the guidance Center if he needs to see a therapist. I discussed with patient all findings as well as the need to follow-up with PCP for further evaluation and treatment or return to the ER if any new or worsening symptoms. Strict return precautions were also discussed at length. Patient voiced understanding and agreement with the plan. Patient is hemodynamically stable at the time of disposition. (ENE LI APRN) Braden Disclaimer: Braden Disclaimer: This electronic medical record was generated, in whole or in part, using a voice recognition dictation system. (ENE LI APRN) Attending Co-Sign The patient was seen and interviewed as well as examined at the bedside. The chart was reviewed. The case was discussed. Agree with the plan of care. (PEDROZA,TAWNYA DO) Departure Departure: Impression: Primary Impression: Anxiety Disposition: 01 HOME / SELF CARE / HOMELESS Condition: GOOD Referrals: ALAN ARTEAGA MD (PCP) Patient Instructions: Anxiety and Panic Attacks Additional Instructions: You were seen in the ER today for anxiety and insomnia. You spoke with George from the psychiatric assessment team and a safety plan was put together. You are to follow-up with Dr. Arteaga to discuss medications for your anxiety and insomnia. Please practice the coping skills that you rated discussed and if you need therapy you can follow-up with the guidance Center. [facility]. If you develop worsening of your anxiety, worsening insomnia, thoughts of wanting to hurt yourself or others please return to the ER immediately. EMERGENCY DEPARTMENT GENERAL DISCHARGE INSTRUCTIONS Thank you for coming to [facility] (ED) today and trusting us with you care. We trust that you had a positivie experience in our Emergency Department. If you wish to speak to the department management, you may call the director at [phone]. YOUR FOLLOW UP INSTRUCTIONS ARE FOLLOWS: 1. Do you have a private Doctor? If you do not have a private doctor, please ask for a resource list of physicians or clinics that may be able to assist you with follow up care. 2. The Emergency Physician has interpreted your x-rays. The X-Ray specialist will also review them. If there is a change in the findings, you will be notified in 48 hours when at all possible. 3. A lab test or culture has been done, your results will be reviewed and you will be notified if you need a change in treatment. ADDITIONAL INSTRUCTIONS AND INFORMATION: 1. Your care today has been supervised by a physician who is specially trained in emergency care. Many problems require more than one evaluation for a complete diagnosis and treatment. We recommend that you schedule your follow up appointment as recommended to ensure complete treatment of you illness or injury. If you are unable to obtain follow up care and continue to have a problem, or if your condition worsens, we recommend that you return to the ED. 2. We are not able to safely determine your condition over the phone nor are we able to give sound medical advice over the phone. For these safety reasons, if you call for medical advice we will ask you to come to the ED for further evaluation. 3. If you have any questions regarding these discharge instructions please call the ED at [phone]. SAFETY INFORMATION: In the interest of safety, wellness, and injury prevention; we encourage you to wear your sealbelt, if you smoke; quite smoking, and we encourage family to use a protective helmet for bicycling and other sporting events that present an increased risk for head injury. IF YOUR SYMPTOMS WORSEN OR NEW SYMPTOMS DEVELOP, OR YOU HAVE CONCERNS ABOUT YOUR CONDITION; OR IF YOUR CONDITION WORSENS WHILE YOU ARE WAITING FOR YOUR FOLLOW UP APPOINTMENT; EITHER CONTACT YOUR PRIMARY CARE DOCTOR, THE PHYSICIAN WHOSE NAME AND NUMBER YOU WERE GIVEN, OR RETURN TO THE ED IMMEDIATELY. ENE LI APRN Dec 18, 2020 12:11 TAWNYA PEDROZA DO Dec 21, 2020 20:59
[2020-12-18 12:23] LABS: BASO % 1 % (0-3); EOS # 0.1 x10^3/uL (0.0-0.7); EOS % 1 % (0-3); HEMATOCRIT 38.3 % (39.0-53.0); HEMOGLOBIN 12.9 g/dL (13.0-17.5); LYMPH # 1.4 x10^3/uL (1.0-4.8); LYMPH % 20 % (24-48); MEAN CORPUSCULAR HEMOGLOBIN 31 pg (25-35); MEAN CORPUSCULAR HGB CONC 34 g/dL (31-37); MEAN CORPUSCULAR VOLUME 91 fL (79-100); MONO # 0.7 x10^3/uL (0.0-1.1); MONO % 10 % (0-9); NEUT # 4.9 x10^3uL (1.8-7.7); NEUT % 69 % (31-73); PLATELET COUNT 228 x10^3/uL (140-400); RED BLOOD COUNT 4.22 x10^6/uL (4.30-5.70); RED CELL DISTRIBUTION WIDTH 13.7 % (11.5-14.5); WHITE BLOOD COUNT 7.1 x10^3/uL (4.0-11.0)
[2020-12-18 12:31] LABS: CALCIUM 8.2 mg/dL (8.5-10.1); CREATININE 2.6 mg/dL (0.7-1.3); GFR 23.4; POTASSIUM 4.1 mmol/L (3.5-5.1)
[2020-12-18 12:37] LABS: ALBUMIN 3.2 g/dL (3.4-5.0); ALBUMIN/GLOBULIN RATIO 0.9 (1.0-1.7); TOTAL BILIRUBIN 0.9 mg/dL (0.2-1.0); TOTAL PROTEIN 6.7 g/dL (6.4-8.2)
[2020-12-18 14:03] VITALS: BP 181/70
== END 2020-12-18 14:00 | disposition home or self-care (01) ==
LOC: ER 11:36
DX: F41.9 Anxiety disorder, unspecified (principal); F32.9 Major depressive disorder, single episode, unspecified; E11.9 Type 2 diabetes mellitus without complications; E78.5 Hyperlipidemia, unspecified; I10 Essential (primary) hypertension; Z90.49 Acquired absence of other specified parts of digestive tract; Z88.5 Allergy status to narcotic agent; Z88.8 Allergy status to other drugs, medicaments and biological substances
CPT/HCPCS: 36415; 80053; 84484; 85025; 99283

== ENCOUNTER 2020-12-20 03:37 | Emergency (ER) | payer MEDICARE ==
[~2020-12-20] VITALS: Ht 188 cm; Wt 130.2 kg
[2020-12-20 03:40] VITALS: BP 161/79
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
[2020-12-20] MEDS ORDERED: IV RINGERS SOLUTION,LACTATED 1,000 ML IV SCH (04:15)
--- NOTE | 2020-12-20 04:49 | EKG ---
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
[2020-12-20 05:01] LABS: CREATININE 2.5 mg/dL (0.7-1.3); GFR 24.5; POTASSIUM 4.2 mmol/L (3.5-5.1)
[2020-12-20 05:02] LABS: BASO % 0 % (0-3); EOS # 0.1 x10^3/uL (0.0-0.7); EOS % 1 % (0-3); HEMATOCRIT 42.1 % (39.0-53.0); LYMPH # 2.2 x10^3/uL (1.0-4.8); LYMPH % 21 % (24-48); MEAN CORPUSCULAR HEMOGLOBIN 30 pg (25-35); MEAN CORPUSCULAR HGB CONC 33 g/dL (31-37); MEAN CORPUSCULAR VOLUME 91 fL (79-100); MONO # 1.1 x10^3/uL (0.0-1.1); MONO % 10 % (0-9); NEUT # 7.3 x10^3uL (1.8-7.7); NEUT % 68 % (31-73); PLATELET COUNT 264 x10^3/uL (140-400); RED BLOOD COUNT 4.63 x10^6/uL (4.30-5.70); RED CELL DISTRIBUTION WIDTH 13.7 % (11.5-14.5); WHITE BLOOD COUNT 10.8 x10^3/uL (4.0-11.0)
[2020-12-20 05:14] LABS: ALBUMIN 3.6 g/dL (3.4-5.0); DIRECT BILIRUBIN 0.3 mg/dL (0.0-0.2); MAGNESIUM 1.9 mg/dL (1.8-2.4); TOTAL BILIRUBIN 1.1 mg/dL (0.2-1.0); TOTAL PROTEIN 7.4 g/dL (6.4-8.2)
[2020-12-20 05:32] LABS: BILIRUBIN,URINE NEG (NEG); CLARITY,URINE HAZY; COLOR,URINE YELLOW; GLUCOSE,URINE 100 mg/dL (NEG)
[2020-12-20 05:33] LABS: BACTERIA,URINE FEW /HPF (0-FEW); NITRITE,URINE NEG (NEG); SQUAMOUS EPITHELIAL CELL,UR FEW /LPF; WBC,URINE 0 /HPF (0-4)
[2020-12-20 05:38] LABS: BARBITURATES NEG (NEG); BENZODIAZEPINES POS (NEG); CANNABINOIDS NEG (NEG); COCAINE NEG (NEG); METHADONE NEG (NEG); OPIATES NEG (NEG); PHENCYCLIDINE NEG (NEG)
[2020-12-20 05:41] LABS: AMPHETAMINE/METHAMPHETAMINE NEG (NEG)
[2020-12-20] MEDS ORDERED: APIXABAN 5 MG TABLET. PO ONE (06:00)
[2020-12-20] MEDS ORDERED: IOHEXOL 350 MG/ML 100 ML VIAL. IV ONE (06:15)
[2020-12-20] MEDS ORDERED: CONTRAST GIVEN. MC PRN (06:15)
--- NOTE | 2020-12-20 06:52 | RAD ---
EXAM: CHEST ONE VIEW. HISTORY: Dyspnea. COMPARISON: 02/13/2019. FINDINGS: A frontal view of the chest is obtained. There are no confluent infiltrates. Mild basilar interstitial opacities appear chronic and can and li maria e reflect atelectasis or scarring. There is no pneumothorax or pleural effusion. The heart is mode rate enlarged. There are atherosclerotic calcifications of the aorta. IMPRESSION: 1. Moderate cardiomegaly. Electronically signed by: Sandee Ramirez MD (12/20/2020 6:49 AM) [facility]
== END 2020-12-20 06:50 | disposition left against medical advice (07) ==
LOC: ER 03:37
DX: F41.0 Panic disorder [episodic paroxysmal anxiety] (principal); E11.9 Type 2 diabetes mellitus without complications; E78.5 Hyperlipidemia, unspecified; Z88.5 Allergy status to narcotic agent; Z88.8 Allergy status to other drugs, medicaments and biological substances; Z90.49 Acquired absence of other specified parts of digestive tract; Z20.822 Contact with and (suspected) exposure to COVID-19
CPT/HCPCS: 36415; 71045; 80048; 80076; 80307; 81001; 82550; 83690; 83735; 83880; 84443; 84484; 85025; 85379; 85610; 85730; 93005; 99285; C9803; G0480; U0003

== ENCOUNTER 2021-04-27 10:03 | Emergency (ER) | payer MEDICARE ==
[~2021-04-27] VITALS: Ht 188 cm; Wt 130.2 kg
[~2021-04-27 10:03] MED LIST changes: -CITA10TA4 PO; +CITA10TA5 PO; -FLUV50TA2 PO; +FLUV50TA21 PO
[2021-04-27 10:05] VITALS: BP 161/79
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
[2021-04-27 11:20] LABS: BASO % 0 % (0-3); EOS % 0 % (0-3); HEMOGLOBIN 14.2 g/dL (13.0-17.5); LYMPH # 1.1 x10^3/uL (1.0-4.8); LYMPH % 13 % (24-48); MEAN CORPUSCULAR HEMOGLOBIN 30 pg (25-35); MEAN CORPUSCULAR HGB CONC 33 g/dL (31-37); MEAN CORPUSCULAR VOLUME 91 fL (79-100); MONO # 0.6 x10^3/uL (0.0-1.1); MONO % 8 % (0-9); NEUT # 6.2 x10^3uL (1.8-7.7); NEUT % 78 % (31-73); PLATELET COUNT 227 x10^3/uL (140-400); RED BLOOD COUNT 4.75 x10^6/uL (4.30-5.70)
[2021-04-27 11:23] LABS: CALCIUM 8.5 mg/dL (8.5-10.1); CREATININE 2.8 mg/dL (0.7-1.3); GFR 21.4; POTASSIUM 4.6 mmol/L (3.5-5.1)
[2021-04-27 11:29] LABS: ALBUMIN 3.2 g/dL (3.4-5.0); ALBUMIN/GLOBULIN RATIO 0.9 (1.0-1.7); TOTAL BILIRUBIN 0.8 mg/dL (0.2-1.0); TOTAL PROTEIN 6.7 g/dL (6.4-8.2)
[2021-04-27 11:30] LABS: ACETAMIN < 2.0 mcg/mL (10-30)
[2021-04-27 11:31] LABS: ETHANOL < 10 mg/dL (0-10); SALIC < 2.8 mg/dL (2.8-20.0)
--- NOTE | 2021-04-27 11:36 | EKG ---
[address] [address] Test Date: 2021-04-27 Test Time: 11:14:01 Pat Name: SANGEETHA RODRÍGUEZ Department: Room: Gender: M Kilnman: AMANDA : 1930 Requested By: LEAH SOUSA Order Number: [id number] Reading MD: Measurements Intervals [place] Rate: 79 P: MA: QRS: -31 QRSD: 106 T: -26 QT: 410 QTc: 471 Interpretive Statements IRREGULAR RHYTHM, NO P-WAVE FOUND VENTRICULAR PREMATURE COMPLEX(ES) ABNORMAL LEFT AXIS DEVIATION LEFT ANTERIOR FASCICULAR BLOCK QRS(T) CONTOUR ABNORMALITY CONSIDER ANTEROSEPTAL MYOCARDIAL DAMAGE PROLONGED QT ABNORMAL ECG RI6.02 No previous ECG available for comparison
[2021-04-27] MEDS ORDERED: LORazepam 1 MG TABLET PO ONE (13:00)
[2021-04-27] MEDS ORDERED: hydrOXYzine HCL 25 MG TABLET ONE (14:21)
[2021-04-27] MEDS ORDERED: hydrOXYzine HCL 10 MG TABLET PO PRN (14:30)
[2021-04-27] MEDS ORDERED: glipiZIDE 5 MG TABLET PO SCH (17:45)
[2021-04-27] MEDS ORDERED: QUEtiapine 25 MG TABLET. PO SCH (18:00)
[2021-04-27] MEDS ORDERED: SERTRALINE 50 MG TABLET. PO SCH (18:00)
[2021-04-27] MEDS ORDERED: metFORMIN 500 MG TABLET PO SCH (21:00)
[2021-04-27] MEDS ORDERED: MELATONIN 3 MG TABLET PO SCH (21:00)
[2021-04-27] MEDS: MEMANTINE 5 MG TABLET. PO SCH (21:29)
[2021-04-27 22:14] LABS: BACTERIA,URINE 0 /HPF (0-FEW); BILIRUBIN,URINE NEG (NEG); CLARITY,URINE CLEAR; COLOR,URINE YELLOW; GLUCOSE,URINE 100 mg/dL (NEG); NITRITE,URINE NEG (NEG); RBC,URINE OCC /HPF (0-2); SQUAMOUS EPITHELIAL CELL,UR OCC /LPF; UROBILINOGEN,URINE 0.2 mg/dL (0.2 mg/dL); WBC,URINE 0 /HPF (0-4)
[2021-04-27 22:16] LABS: AMPHETAMINE/METHAMPHETAMINE NEG (NEG); BARBITURATES NEG (NEG); BENZODIAZEPINES NEG (NEG); CANNABINOIDS NEG (NEG); COCAINE NEG (NEG); METHADONE NEG (NEG); OPIATES NEG (NEG); PHENCYCLIDINE NEG (NEG)
[2021-04-28] MEDS: hydrOXYzine HCL 10 MG TABLET PO SCH ×2 (08:55→11:00)
[2021-04-28] MEDS: MEMANTINE 5 MG TABLET. PO SCH (09:00)
[2021-04-28] MEDS ORDERED: glipiZIDE 5 MG TABLET PO ONE (09:45)
[2021-04-28] MEDS ORDERED: LORazepam 1 MG TABLET PO ONE (09:45)
[2021-04-28] MEDS ORDERED: CITALOPRAM 10 MG TABLET. PO ONE (09:45)
[2021-04-28] MEDS ORDERED: PANTOPRAZOLE 40 MG TABLET. PO ONE (09:45)
--- NOTE | 2021-04-28 11:23 | PHYS DOC ---
Past History Past Medical History: Anxiety, Arthritis, Arrhythmia, Depression, Diabetes, High Cholesterol, Hypertension Additional Past Medical Histor: elevated harmony Past Surgical History: Cholecystectomy, Other Additional Past Surgical Histo: heel surgery Smoking: Non-smoker Alcohol Use: None Drug Use: None General Adult EDM: Chief Complaint: DIZZY/LIGHT HEADED HPI: HPI: See previous HPI from April 27, 2021 Review of Systems: Review of Systems: Constitutional: Denies fever or chills Eyes: Denies change in visual acuity HENT: Denies nasal congestion or sore throat Respiratory: Denies cough or shortness of breath Cardiovascular: Denies chest pain or edema GI: Denies abdominal pain, nausea, vomiting, bloody stools or diarrhea : Denies dysuria Musculoskeletal: Denies back pain or joint pain Integument: Denies rash Neurologic: Denies headache, focal weakness or sensory changes Endocrine: Denies polyuria or polydipsia Lymphatic: Denies swollen glands Psychiatric: Denies depression or anxiety Current Medications: Current Meds: Current Medications Medications (Trade) Dose Ordered Sig/Arthur Start Time Stop Time Status Last Admin Dose Admin Citalopram Hydrobromide (CeleXA) 10 mg 1X ONCE 04/28/21 09:45 04/28/21 09:46 DC 04/28/21 09:47 10 MG Fish Oil (Fish Oil) 1,000 mg DAILY 04/29/21 09:00 Glipizide (Glucotrol) 5 mg 1X ONCE 04/28/21 09:45 04/28/21 09:46 DC 04/28/21 09:47 5 MG Hydroxyzine HCl (Atarax) 10 mg 0700,1100,1900 04/27/21 19:00 04/28/21 08:55 10 MG Lorazepam (Ativan) 0.5 mg 1X ONCE 04/28/21 09:45 04/28/21 09:46 DC 04/28/21 10:08 0.5 MG Melatonin (Melatonin) 6 mg HS 04/27/21 21:00 04/27/21 21:29 6 MG Memantine (Namenda) 5 mg BID 04/27/21 21:00 04/28/21 09:00 5 MG Metformin HCl (Glucophage) 1,000 mg BID 04/27/21 21:00 UNV Pantoprazole Sodium (Protonix) 40 mg 1X ONCE 04/28/21 09:45 04/28/21 09:46 DC Quetiapine Fumarate (SEROquel) 62.5 mg 1500 04/27/21 18:00 04/27/21 18:33 62.5 MG Sertraline HCl (Zoloft) 50 mg AFTRNOON 04/27/21 18:00 04/27/21 18:31 50 MG Allergies: Allergies: Allergies Coded Allergies Type Severity Reaction Last Updated Verified morphine Allergy Intermediate Anxiety 12/20/20 Yes fentanyl Allergy Unknown 04/28/21 Yes hydrocodone Allergy Unknown 04/28/21 Yes losartan Allergy Unknown 12/20/20 Yes metformin Allergy Unknown 12/20/20 Yes propranolol Allergy Unknown 12/20/20 Yes hydromorphone HCl Adverse Reaction Severe severe anxiety 12/20/20 Yes Physical Exam: PE: Constitutional: Well developed, well nourished, no acute distress, non-toxic appearance. [] HENT: Normocephalic, atraumatic, bilateral external ears normal, oropharynx moist, no oral exudates, nose normal. [] Eyes: PERRLA, EOMI, conjunctiva normal, no discharge. [] Neck: Normal range of motion, no tenderness, supple, no stridor. [] Cardiovascular:Heart rate regular rhythm, no murmur [] Lungs & Thorax: Bilateral breath sounds clear to auscultation [] Abdomen: Bowel sounds normal, soft, no tenderness, no masses, no pulsatile masses. [] Skin: Warm, dry, no erythema, no rash. [] Back: No tenderness, no CVA tenderness. [] Extremities: No tenderness, no cyanosis, no clubbing, ROM intact, no edema. [] Neurologic: Alert and oriented X 3, normal motor function, normal sensory function, no focal deficits noted. [] Psychologic: Affect normal, judgement normal, mood normal. [] Current Patient Data: Labs: Laboratory Tests Test 04/27/21 12:53 04/27/21 21:35 SARS-CoV-2 (PCR) Not detected (NOT DETECTD) SARS-CoV-2 Antigen (Rapid) Negative (NEGATIVE) Urine Collection Type Unknown Urine Color Yellow Urine Clarity Clear Urine pH 5.5 Urine Specific [place] 1.025 Urine Protein 100 mg/dl (NEG-TRACE) Urine Glucose (UA) 100 mg/dL (NEG) Urine Ketones (Stick) Neg mg/dL (NEG) Urine Blood Small (NEG) Urine Nitrite Neg (NEG) Urine Bilirubin Neg (NEG) Urine Urobilinogen Dipstick 0.2 mg/dL (0.2 mg/dL) Urine Leukocyte Esterase Neg (NEG) Urine RBC Occ /HPF (0-2) Urine WBC 0 /HPF (0-4) Urine Squamous Epithelial Cells Occ /LPF Urine Bacteria 0 /HPF (0-FEW) Urine Opiates Screen Neg (NEG) Urine Methadone Screen Neg (NEG) Urine Barbiturates Neg (NEG) Urine Phencyclidine Screen Neg (NEG) Urine Amphetamine/Methamphetamine Neg (NEG) Urine Benzodiazepines Screen Neg (NEG) Urine Cocaine Screen Neg (NEG) Urine Cannabinoids Screen Neg (NEG) Urine Ethyl Alcohol (NEG) Vital Signs: Vital Signs Date Time Temp Pulse Resp B/P (MAP) Pulse Ox O2 Delivery O2 Flow Rate FiO2 04/27/21 10:05 98.0 66 16 161/79 (106) 100 EKG: EKG: [] Radiology/Procedures: Radiology/Procedures: [] Heart Score: C/O Chest Pain: N/A Risk Factors: Risk Factors: DM, Current or recent (<one month) smoker, HTN, HLP, family history of CAD, obesity. Risk Scores: Score 0 - 3: 2.5% MACE over next 6 weeks - Discharge Home Score 4 - 6: 20.3% MACE over next 6 weeks - Admit for Clinical Observation Score 7 - 10: 72.7% MACE over next 6 weeks - Early Invasive Strategies Course & Med Decision Making: Course & Med Decision Making Pertinent Labs and Imaging studies reviewed. (See chart for details) [See previous note from April 27, 2021 Dragcornelio Disclaimer: Braden Disclaimer: This electronic medical record was generated, in whole or in part, using a voice recognition dictation system. Departure Departure: Impression: Primary Impression: Dementia Qualified Codes: F03.90 - Unspecified dementia without behavioral disturbance Additional Impression: Anxiety Disposition: HOME / SELF CARE / HOMELESS Condition: STABLE Referrals: ALAN ARTEAGA MD (PCP) Patient Instructions: Anxiety and Panic Attacks Additional Instructions: Follow-up with your primary care physician Dr. Arteaga for further management of symptoms. Continue your current medications as previously ordered LEAH SOUSA STEAM SHOVEL OPERATOR Apr 28, 2021 11:23
[2021-04-29] MEDS ORDERED: OMEGA-3 FATTY ACIDS/FISH OIL 1,000 MG CAPSULE. PO SCH (09:00)
== END 2021-04-28 13:41 | disposition home or self-care (01) ==
LOC: ER 10:03
DX: F03.90 Unspecified dementia, unspecified severity, without behavioral disturbance, psychotic disturbance, mood disturbance, and anxiety (principal); F41.9 Anxiety disorder, unspecified; M19.90 Unspecified osteoarthritis, unspecified site; F32.9 Major depressive disorder, single episode, unspecified; E11.9 Type 2 diabetes mellitus without complications; E78.00 Pure hypercholesterolemia, unspecified; I10 Essential (primary) hypertension; Z20.822 Contact with and (suspected) exposure to COVID-19; Z88.5 Allergy status to narcotic agent; Z88.8 Allergy status to other drugs, medicaments and biological substances
CPT/HCPCS: 80053; 80307; 80329; 81001; 85025; 87426; 93005; 99284; G0480; U0003